=== PATIENT | male | born 1955 | race Hispanic/Latino ===

== ENCOUNTER 2022-02-28 17:58 | Emergency (ER) | payer OTHER ==
[~2022-02-28] VITALS: Ht 170.2 cm; Wt 106.6 kg
[2022-02-28] MEDS ORDERED: ONDANSETRON HCL INJ 2MG/ML 2ML 2 MG/ML VIAL IV STA (18:43)
[2022-02-28] MEDS ORDERED: Morphine 4mg INJECTION 4 MG/ML INJ IV PRN (18:45)
[2022-02-28 19:00] LABS: BASOPHILS % 0.1 % (0.0-1.0); EOSINOPHILS # (AUTO) 0.1 (0.0-0.4); EOSINOPHILS % 0.8 % (0.0-6.0); HEMATOCRIT 34.8 % (38.2-49.6); LYMPHOCYTES # (AUTO) 1.2 (1.0-3.2); LYMPHOCYTES % 12.5 % (18.0-39.1); MEAN CORPUSCULAR HGB CONC 31.6 g/dL (31-35); MEAN CORPUSCULAR VOLUME 104.5 fL (81-99); MONOCYTES % 10.1 % (4.4-11.3); NEUTROPHILS # (AUTO) 7.5 (2.1-6.9); NEUTROPHILS % 76.2 % (38.7-80.0); PLATELET COUNT 169 x10e3/uL (140-360); RED BLOOD COUNT 3.33 x10e6/uL (4.3-5.7); RED CELL DISTRIBUTION WIDTH 13.8 % (11.7-14.4)
[2022-02-28] MEDS ORDERED: IOPAMIDOL 370 MG/ML 100 ML INFUS..BTL INJ ONE (19:07)
[2022-02-28 19:18] LABS: ALBUMIN/GLOBULIN RATIO 1.1 (0.8-2.0); ANION GAP 21.5 mmol/L (8-16); CALCIUM 9.8 mg/dL (8.4-10.2); CREATININE, SERUM 6.8 mg/dL (0.72-1.25); POTASSIUM 4.5 mmol/L (3.5-5.1)
[2022-02-28 20:54] VITALS: BP 159/61
[2022-02-28] MEDS ORDERED: METRONIDAZOLE500 MG PO (20:54)
[2022-02-28] MEDS ORDERED: CIPRO500 MG PO (20:54)
[2022-02-28] MEDS ORDERED: ONDANSETRON ODT4 MG PO (20:55)
== END 2022-02-28 21:05 | disposition home or self-care (01) ==
LOC: ER 18:03
DX: R10.31 Right lower quadrant pain (principal); R11.2 Nausea with vomiting, unspecified; I12.0 Hypertensive chronic kidney disease with stage 5 chronic kidney disease or end stage renal disease; E11.22 Type 2 diabetes mellitus with diabetic chronic kidney disease; E11.65 Type 2 diabetes mellitus with hyperglycemia; N18.6 End stage renal disease; Z99.2 Dependence on renal dialysis; K57.32 Diverticulitis of large intestine without perforation or abscess without bleeding; I25.2 Old myocardial infarction; Z95.5 Presence of coronary angioplasty implant and graft
CPT/HCPCS: 36415; 74177; 80053; 85025; 93005; 99284; J2270; J2405; Q9967

== ENCOUNTER → 2022-05-18 | Day surgery (SDC) | payer OTHER ==
[~2022-05-18] MED LIST: ALLOPURINOL100 MG PO; AMLODIPINE BESYL5 MG PO; ASPIRIN81 MG PO; ATORVASTATIN CA20 MG PO; BUMETANIDE1 MG PO; CALCIUM ACETAT667 M1 PO; CIPRO500 MG PO; CLOPIDOGREL75 MG PO; EPHEDRINE SULFATE INJ 50 MG/ML VIAL ONE; FENTANYL CITRATE/PF 100MCG/2 ML INJ ONE; FLOMAX0.4 MG PO; GLUCAGON FOR INJ 1 MG VIAL ONE; HUMALOG MI100 UNIT/2 SQ; LEVEMIR FL100 UNIT/1 SC; LIDOCAINE HCL 2% LOCAL INJ 5 ML SDV VIAL INJ ONE; METOCLOPRAMIDE HCL 10 MG/2ML VIAL ONE; METOPROLOL ER PO; METRONIDAZOLE500 MG PO; MONTELUKAST SOD10 MG PO; NEPHRO-VITE TABL1 EA PO; ONDANSETRON HCL INJ 2MG/ML 2ML 2 MG/ML VIAL ONE; ONDANSETRON ODT4 MG PO; POVIDONE IODINE 0.05% 0.05 % ML PO ONE; PROPOFOL IV EMULSION 10 MG/ML 20 ML VIAL ONE; PROPOFOL IV EMULSION 50 ML IV ONE; PROTONIX20 MG PO; SODIUM CHLORIDE 0.9% 500ML 500 ML ONE; TRAMADOL HCL100 MG; VASCEPA1 GM PO; VITAMIN D3
[2022-05-18 06:13] LABS: BASOPHILS # (AUTO) 0.1 (0.0-0.1); BASOPHILS % 0.8 % (0.0-1.0); EOSINOPHILS # (AUTO) 0.5 (0.0-0.4); HEMATOCRIT 34.1 % (38.2-49.6); LYMPHOCYTES # (AUTO) 1.3 (1.0-3.2); LYMPHOCYTES % 17.7 % (18.0-39.1); MEAN CORPUSCULAR HEMOGLOBIN 32.7 pg (28-32); MEAN CORPUSCULAR HGB CONC 35.2 g/dL (31-35); MEAN CORPUSCULAR VOLUME 92.9 fL (81-99); MONOCYTES # (AUTO) 0.8 (0.2-0.8); MONOCYTES % 10.8 % (4.4-11.3); NEUTROPHILS # (AUTO) 4.9 (2.1-6.9); NEUTROPHILS % 64.3 % (38.7-80.0); PLATELET COUNT 151 x10e3/uL (140-360); RED BLOOD COUNT 3.67 x10e6/uL (4.3-5.7); RED CELL DISTRIBUTION WIDTH 13.3 % (11.7-14.4)
[2022-05-18 06:25] LABS: INR 0.95; PROTHROMBIN TIME 13.2 seconds (11.9-14.5)
[2022-05-18 06:47] LABS: ANION GAP 24.5 mmol/L (8-16); CALCIUM 8.8 mg/dL (8.4-10.2); CREATININE, SERUM 4.79 mg/dL (0.72-1.25); POTASSIUM 3.5 mmol/L (3.5-5.1)
[2022-05-18 10:36] VITALS: BP 130/48
== END | disposition home or self-care (01) ==
LOC: OR 06:47
PROVIDERS: ATTEND Internal Medicine Gastroenterology
DX: K29.50 Unspecified chronic gastritis without bleeding (principal); D12.0 Benign neoplasm of cecum; D12.2 Benign neoplasm of ascending colon; D12.3 Benign neoplasm of transverse colon; K31.89 Other diseases of stomach and duodenum; K20.90 Esophagitis, unspecified without bleeding; K59.00 Constipation, unspecified; K44.9 Diaphragmatic hernia without obstruction or gangrene; K57.30 Diverticulosis of large intestine without perforation or abscess without bleeding; K64.8 Other hemorrhoids; E11.22 Type 2 diabetes mellitus with diabetic chronic kidney disease; I13.2 Hypertensive heart and chronic kidney disease with heart failure and with stage 5 chronic kidney disease, or end stage renal disease; N18.6 End stage renal disease; I50.32 Chronic diastolic (congestive) heart failure; I25.810 Atherosclerosis of coronary artery bypass graft(s) without angina pectoris; E78.2 Mixed hyperlipidemia; I44.0 Atrioventricular block, first degree; Z79.02 Long term (current) use of antithrombotics/antiplatelets; Z79.82 Long term (current) use of aspirin; Z79.4 Long term (current) use of insulin; Z79.899 Other long term (current) drug therapy; Z99.2 Dependence on renal dialysis; Z68.36 Body mass index [BMI] 36.0-36.9, adult; Z95.5 Presence of coronary angioplasty implant and graft; Z95.1 Presence of aortocoronary bypass graft; Z89.439 Acquired absence of unspecified foot; Z89.029 Acquired absence of unspecified finger(s)
CPT/HCPCS: 36415; 43239; 45378; 45380; 45385; 80048; 82948; 85025; 85610; 85730; 88304; 88305; 88312; 88342; J1610; J2001; J2405; J2765; J7040

== ENCOUNTER 2022-11-26 15:18 | Inpatient (IN) | payer OTHER ==
[~2022-11-26] VITALS: Ht 170.2 cm; Wt 107.5 kg
[~2022-11-26 15:18] MED LIST changes: -EPHEDRINE SULFATE INJ 50 MG/ML VIAL ONE; -FENTANYL CITRATE/PF 100MCG/2 ML INJ ONE; -GLUCAGON FOR INJ 1 MG VIAL ONE; -LIDOCAINE HCL 2% LOCAL INJ 5 ML SDV VIAL INJ ONE; -METOCLOPRAMIDE HCL 10 MG/2ML VIAL ONE; -ONDANSETRON HCL INJ 2MG/ML 2ML 2 MG/ML VIAL ONE; -POVIDONE IODINE 0.05% 0.05 % ML PO ONE; -PROPOFOL IV EMULSION 10 MG/ML 20 ML VIAL ONE; -PROPOFOL IV EMULSION 50 ML IV ONE; -SODIUM CHLORIDE 0.9% 500ML 500 ML ONE
[2022-11-26 16:10] LABS: BASOPHILS % 0.4 % (0.0-1.0); EOSINOPHILS # (AUTO) 0.1 (0.0-0.4); HEMATOCRIT 28.7 % (38.2-49.6); HEMOGLOBIN 9.9 g/dL (14.0-18.0); LYMPHOCYTES % 9.9 % (18.0-39.1); MEAN CORPUSCULAR HEMOGLOBIN 30.7 pg (28-32); MEAN CORPUSCULAR HGB CONC 34.5 g/dL (31-35); MEAN CORPUSCULAR VOLUME 88.9 fL (81-99); MONOCYTES # (AUTO) 1.1 (0.2-0.8); MONOCYTES % 10.5 % (4.4-11.3); PLATELET COUNT 174 x10e3/uL (140-360); RED BLOOD COUNT 3.23 x10e6/uL (4.3-5.7); WHITE BLOOD COUNT 10.29 x10e3/uL (4.8-10.8)
[2022-11-26] MEDS ORDERED: PIPERACILLIN/TAZOBACTAM 3.375 GM VIAL ONE (16:10)
[2022-11-26 16:24] LABS: ANION GAP 18.8 mmol/L (8-16); CALCIUM 9.5 mg/dL (8.4-10.2); CREATININE, SERUM 8.21 mg/dL (0.72-1.25); POTASSIUM 3.8 mmol/L (3.5-5.1)
[2022-11-26] MEDS ORDERED: AMOX TR-K CLV1 EAC2 PO (17:57)
[2022-11-26 22:28] VITALS: BP 132/36; PULSE 71; RESP 20; TEMP 99; O2SAT 100
[2022-11-26 23:00] VITALS: BP 132/56; PULSE 71; RESP 20; TEMP 99; O2SAT 100
[2022-11-27] MEDS ORDERED: ONDANSETRON HCL INJ 2MG/ML 2ML 2 MG/ML VIAL IV PRN
[2022-11-27] MEDS: Morphine 4mg INJECTION 4 MG/ML INJ IV PRN (00:01)
[2022-11-27] MEDS ORDERED: DEXTROSE 50% SYRINGE 50 ML IV PRN (01:15)
[2022-11-27 04:00] VITALS: BP 102/36; PULSE 66; RESP 20; TEMP 98.1; O2SAT 96
[2022-11-27 05:24] LABS: BASOPHILS % 0.5 % (0.0-1.0); EOSINOPHILS # (AUTO) 0.2 (0.0-0.4); EOSINOPHILS % 2.4 % (0.0-6.0); HEMOGLOBIN 8.6 g/dL (14.0-18.0); LYMPHOCYTES # (AUTO) 1.2 (1.0-3.2); LYMPHOCYTES % 16.2 % (18.0-39.1); MEAN CORPUSCULAR HEMOGLOBIN 30.7 pg (28-32); MEAN CORPUSCULAR HGB CONC 34.4 g/dL (31-35); MEAN CORPUSCULAR VOLUME 89.3 fL (81-99); MONOCYTES # (AUTO) 0.8 (0.2-0.8); MONOCYTES % 10.8 % (4.4-11.3); NEUTROPHILS # (AUTO) 5.2 (2.1-6.9); NEUTROPHILS % 69.8 % (38.7-80.0); PLATELET COUNT 152 x10e3/uL (140-360); WHITE BLOOD COUNT 7.49 x10e3/uL (4.8-10.8)
[2022-11-27 05:43] LABS: ANION GAP 17.3 mmol/L (8-16); CALCIUM 8.4 mg/dL (8.4-10.2); CREATININE, SERUM 8.7 mg/dL (0.72-1.25); POTASSIUM 4.3 mmol/L (3.5-5.1)
[2022-11-27] MEDS ORDERED: SODIUM CHLORIDE 0.9% 250ML 250 ML ONE (06:50)
[2022-11-27 07:55] VITALS: BP 107/46; PULSE 68; RESP 18; TEMP 98.1; O2SAT 100
[2022-11-27] MEDS: TAMSULOSIN HCL 0.4 MG CAP PO SCH (08:44)
[2022-11-27] MEDS: AMLODIPINE BESYLATE 5 MG TAB PO SCH (08:44)
[2022-11-27] MEDS: ALLOPURINOL 100 MG TAB PO SCH (08:45)
[2022-11-27] MEDS: INSULIN REGULAR, HUMAN 100 UNIT/1 ML SQ SCH ×4 (08:47→22:35)
[2022-11-27] MEDS ORDERED: NOVOLOG100 UNIT/1 SC (08:51)
[2022-11-27 08:52] VITALS: BP 107/46; PULSE 68; RESP 18; TEMP 98.1; O2SAT 100
[2022-11-27] MEDS ORDERED: SODIUM CHLORIDE 0.9% 1000ML 1,000 ML ONE (10:51)
[2022-11-27 11:51] VITALS: BP 129/59; PULSE 68; RESP 18; TEMP 98.4; O2SAT 99
[2022-11-27] MEDS ORDERED: INSULIN REGULAR, HUMAN 100 UNIT/1 ML SQ ONE (12:00)
[2022-11-27 15:53] VITALS: BP 128/59; PULSE 73; RESP 17; TEMP 97.7; O2SAT 100
[2022-11-27] MEDS: COLLAGENASE 5 GM TUBE TP SCH (16:28)
[2022-11-27 17:53] LABS: CLARITY,URINE SL CLOUDY (CLEAR); COLOR,URINE YELLOW (YELLOW); KETONES,URINE NEGATIVE (NEGATIVE); LEUKOCYTE ESTERASE ,URINE NEGATIVE (NEGATIVE); NITRITE,URINE NEGATIVE (NEGATIVE); PROTEIN,URINE DIPSTICK 2+ (NEGATIVE); URINE UROBILINOGEN 0.2 mg/dL (0.2 - 1)
[2022-11-27 18:03] LABS: BACTERIA,URINE MODERATE /HPF; EPITHELIAL CELLS,URINE MODERATE /LPF; RBC,URINE 0-5 /HPF (0-5); TRANSITIONAL EPI CELLS,URINE FEW
[2022-11-27] MEDS ORDERED: LINZESS290 MCG PO (19:23)
[2022-11-27] MEDS ORDERED: TRAMADOL HCL 50 MG TAB PO PRN (19:45)
[2022-11-27 20:00] VITALS: BP 128/65; PULSE 78; RESP 18; TEMP 98.1; O2SAT 100
[2022-11-27] MEDS: ATORVASTATIN 20 MG TAB PO SCH (21:48)
[2022-11-27] MEDS: HYDROCODONE/APAP 7.5MG-325MG 1 EA TAB PO PRN (21:48)
[2022-11-27] MEDS ORDERED: PIPERACILLIN/TAZOBACTAM SOD 2.25 GM VIAL ONE (21:59)
[2022-11-28] VITALS (9 sets, daily range): BP systolic 120–149; BP diastolic 47–70; PULSE 72–78; RESP 18–19; TEMP 98–98.7; O2SAT 96–100
[2022-11-28 05:29] LABS: BASOPHILS % 0.5 % (0.0-1.0); EOSINOPHILS # (AUTO) 0.3 (0.0-0.4); EOSINOPHILS % 3.9 % (0.0-6.0); HEMOGLOBIN 9.1 g/dL (14.0-18.0); LYMPHOCYTES # (AUTO) 0.9 (1.0-3.2); LYMPHOCYTES % 14.2 % (18.0-39.1); MEAN CORPUSCULAR HEMOGLOBIN 30.5 pg (28-32); MEAN CORPUSCULAR HGB CONC 33.7 g/dL (31-35); MEAN CORPUSCULAR VOLUME 90.6 fL (81-99); MONOCYTES # (AUTO) 0.8 (0.2-0.8); MONOCYTES % 12.3 % (4.4-11.3); NEUTROPHILS # (AUTO) 4.4 (2.1-6.9); NEUTROPHILS % 68.9 % (38.7-80.0); PLATELET COUNT 174 x10e3/uL (140-360); RED BLOOD COUNT 2.98 x10e6/uL (4.3-5.7); RED CELL DISTRIBUTION WIDTH 12.9 % (11.7-14.4); WHITE BLOOD COUNT 6.33 x10e3/uL (4.8-10.8)
[2022-11-28 06:26] LABS: ANION GAP 14.1 mmol/L (8-16); CALCIUM 8.5 mg/dL (8.4-10.2); POTASSIUM 4.1 mmol/L (3.5-5.1)
[2022-11-28 06:44] LABS: ALBUMIN 2.9 g/dL (3.5-5.0)
[2022-11-28 06:47] LABS: ALBUMIN/GLOBULIN RATIO 0.8 (0.8-2.0)
[2022-11-28] MEDS: COLLAGENASE 5 GM TUBE TP SCH (09:00)
[2022-11-28] MEDS: PANTOPRAZOLE SOD 40 MG TABEC PO SCH (09:01)
[2022-11-28] MEDS: TAMSULOSIN HCL 0.4 MG CAP PO SCH (09:01)
[2022-11-28] MEDS: CLOPIDOGREL BISULFATE 75 MG TAB PO SCH (09:01)
[2022-11-28] MEDS: ALLOPURINOL 100 MG TAB PO SCH (09:01)
[2022-11-28] MEDS: AMLODIPINE BESYLATE 5 MG TAB PO SCH (09:01)
[2022-11-28] MEDS: MONTELUKAST SODIUM 10 MG TAB PO SCH (09:01)
[2022-11-28] MEDS: ICOSAPENT ETHYL 1 GM CAPSULE PO SCH ×2 (09:02→17:03)
[2022-11-28] MEDS: ASPIRIN 81 MG CHEW TAB PO SCH (09:02)
[2022-11-28] MEDS: INSULIN GLARGINE 100 UNITS/ML VIAL SC SCH ×2 (09:11→21:41)
[2022-11-28] MEDS: INSULIN REGULAR, HUMAN 100 UNIT/1 ML SQ SCH ×4 (09:19→21:40)
[2022-11-28] MEDS: INSULIN LISPRO 100 UNIT/1 ML 3ML VIAL SQ SCH ×3 (09:20→17:07)
[2022-11-28] MEDS ORDERED: ONDANSETRON HCL 4 MG ORAL DISINTEGRATING TAB PO PRN (11:45)
[2022-11-28] MEDS: MECLIZINE HCL 12.5 MG TAB PO SCH ×3 (13:44→21:30)
[2022-11-28] MEDS: HYDROCODONE/APAP 7.5MG-325MG 1 EA TAB PO PRN (18:31)
[2022-11-28] MEDS: ATORVASTATIN 20 MG TAB PO SCH (21:29)
[2022-11-29] VITALS (7 sets, daily range): BP systolic 105–177; BP diastolic 40–80; PULSE 68–79; RESP 17–20; TEMP 97.9–98.8; O2SAT 98–100
[2022-11-29] MEDS: MECLIZINE HCL 12.5 MG TAB PO SCH ×3 (05:19→21:45)
[2022-11-29 06:21] LABS: BASOPHILS # (AUTO) 0.1 (0.0-0.1); EOSINOPHILS # (AUTO) 0.4 (0.0-0.4); HEMATOCRIT 25.7 % (38.2-49.6); HEMOGLOBIN 8.8 g/dL (14.0-18.0); LYMPHOCYTES % 17.4 % (18.0-39.1); MEAN CORPUSCULAR HEMOGLOBIN 30.9 pg (28-32); MEAN CORPUSCULAR HGB CONC 34.2 g/dL (31-35); MEAN CORPUSCULAR VOLUME 90.2 fL (81-99); MONOCYTES # (AUTO) 0.7 (0.2-0.8); MONOCYTES % 11.2 % (4.4-11.3); NEUTROPHILS # (AUTO) 3.8 (2.1-6.9); NEUTROPHILS % 64.1 % (38.7-80.0); PLATELET COUNT 186 x10e3/uL (140-360); RED BLOOD COUNT 2.85 x10e6/uL (4.3-5.7); RED CELL DISTRIBUTION WIDTH 12.8 % (11.7-14.4); WHITE BLOOD COUNT 5.98 x10e3/uL (4.8-10.8)
[2022-11-29 06:46] LABS: CALCIUM 8.4 mg/dL (8.4-10.2); CREATININE, SERUM 7.1 mg/dL (0.72-1.25)
[2022-11-29] MEDS ORDERED: SODIUM CHLORIDE 0.9% 1000ML 2,000 ML ONE (08:04)
[2022-11-29] MEDS: INSULIN REGULAR, HUMAN 100 UNIT/1 ML SQ SCH ×4 (08:10→21:57)
[2022-11-29] MEDS: INSULIN LISPRO 100 UNIT/1 ML 3ML VIAL SQ SCH ×3 (08:10→17:31)
[2022-11-29] MEDS ORDERED: HEPARIN SOD (PORCINE) 1000 UNIT/ML SDV ONE (08:21)
[2022-11-29] MEDS ORDERED: HEPARIN SOD (PORCINE) 1000 UNIT/ML SDV IV PRN (09:00)
[2022-11-29] MEDS: AMLODIPINE BESYLATE 5 MG TAB PO SCH (09:00)
[2022-11-29] MEDS ORDERED: EPOETIN ALFA-EPBX 10,000 UNIT/ML VIAL SC ONE (11:00)
[2022-11-29] MEDS: MONTELUKAST SODIUM 10 MG TAB PO SCH (11:13)
[2022-11-29] MEDS: ICOSAPENT ETHYL 1 GM CAPSULE PO SCH ×2 (11:13→17:31)
[2022-11-29] MEDS: ASPIRIN 81 MG CHEW TAB PO SCH (11:13)
[2022-11-29] MEDS: CLOPIDOGREL BISULFATE 75 MG TAB PO SCH (11:14)
[2022-11-29] MEDS: TAMSULOSIN HCL 0.4 MG CAP PO SCH (11:14)
[2022-11-29] MEDS: ALLOPURINOL 100 MG TAB PO SCH (11:14)
[2022-11-29] MEDS: PANTOPRAZOLE SOD 40 MG TABEC PO SCH (11:15)
[2022-11-29] MEDS: INSULIN GLARGINE 100 UNITS/ML VIAL SC SCH ×2 (11:16→21:58)
[2022-11-29] MEDS: COLLAGENASE 5 GM TUBE TP SCH (11:17)
[2022-11-29] MEDS: HYDROCODONE/APAP 7.5MG-325MG 1 EA TAB PO PRN ×2 (14:48→23:41)
[2022-11-29] MEDS: ATORVASTATIN 20 MG TAB PO SCH (21:45)
[2022-11-30] VITALS (8 sets, daily range): BP systolic 117–177; BP diastolic 55–77; PULSE 65–70; RESP 18–20; TEMP 97.7–98.6; O2SAT 98–100
[2022-11-30] MEDS: AMLODIPINE BESYLATE 5 MG TAB PO SCH ×2 (06:22→11:42)
[2022-11-30] MEDS: MECLIZINE HCL 12.5 MG TAB PO SCH ×3 (06:22→23:10)
[2022-11-30 06:26] LABS: HEMATOCRIT 27.3 % (38.2-49.6)
[2022-11-30 06:48] LABS: PHOSPHORUS 4.2 MG/DL (2.3-4.7)
[2022-11-30 07:51] LABS: FERRITIN 1982.6 ng/mL (21.81-274.66)
[2022-11-30] MEDS: COLLAGENASE 5 GM TUBE TP SCH (09:00)
[2022-11-30] MEDS: INSULIN REGULAR, HUMAN 100 UNIT/1 ML SQ SCH ×4 (11:30→21:00)
[2022-11-30] MEDS: MONTELUKAST SODIUM 10 MG TAB PO SCH (11:39)
[2022-11-30] MEDS: ALLOPURINOL 100 MG TAB PO SCH (11:39)
[2022-11-30] MEDS: TAMSULOSIN HCL 0.4 MG CAP PO SCH (11:40)
[2022-11-30] MEDS: PANTOPRAZOLE SOD 40 MG TABEC PO SCH (11:40)
[2022-11-30] MEDS: ICOSAPENT ETHYL 1 GM CAPSULE PO SCH ×2 (11:40→18:07)
[2022-11-30] MEDS: ASPIRIN 81 MG CHEW TAB PO SCH (11:40)
[2022-11-30] MEDS: INSULIN LISPRO 100 UNIT/1 ML 3ML VIAL SQ SCH ×3 (11:44→18:08)
[2022-11-30] MEDS: INSULIN GLARGINE 100 UNITS/ML VIAL SC SCH ×3 (11:46→21:28)
[2022-11-30] MEDS: CLOPIDOGREL BISULFATE 75 MG TAB PO SCH (11:47)
[2022-11-30] MEDS: HYDROCODONE/APAP 7.5MG-325MG 1 EA TAB PO PRN (18:13)
[2022-11-30] MEDS: ATORVASTATIN 20 MG TAB PO SCH (20:34)
[2022-11-30] MEDS: Morphine 4mg INJECTION 4 MG/ML INJ IV PRN (20:35)
[2022-12-01] VITALS (7 sets, daily range): BP systolic 128–170; BP diastolic 51–65; PULSE 68–72; RESP 18–20; TEMP 97.4–98.1; O2SAT 98–100
[2022-12-01] MEDS: MECLIZINE HCL 12.5 MG TAB PO SCH ×3 (05:48→21:06)
[2022-12-01] MEDS: ICOSAPENT ETHYL 1 GM CAPSULE PO SCH ×2 (08:42→16:05)
[2022-12-01] MEDS: ASPIRIN 81 MG CHEW TAB PO SCH (08:42)
[2022-12-01] MEDS: TAMSULOSIN HCL 0.4 MG CAP PO SCH (08:42)
[2022-12-01] MEDS: ALLOPURINOL 100 MG TAB PO SCH (08:42)
[2022-12-01] MEDS: CLOPIDOGREL BISULFATE 75 MG TAB PO SCH (08:42)
[2022-12-01] MEDS: MONTELUKAST SODIUM 10 MG TAB PO SCH (08:42)
[2022-12-01] MEDS: PANTOPRAZOLE SOD 40 MG TABEC PO SCH (08:42)
[2022-12-01] MEDS: COLLAGENASE 5 GM TUBE TP SCH (08:43)
[2022-12-01] MEDS: INSULIN REGULAR, HUMAN 100 UNIT/1 ML SQ SCH ×4 (08:51→21:00)
[2022-12-01] MEDS: INSULIN GLARGINE 100 UNITS/ML VIAL SQ SCH ×2 (08:52→16:30)
[2022-12-01] MEDS ORDERED: SODIUM CHLORIDE 0.9% 1000ML 2,000 ML IV PRN (09:15)
[2022-12-01 09:29] LABS: BASOPHILS # (AUTO) 0.1 (0.0-0.1); BASOPHILS % 1.3 % (0.0-1.0); EOSINOPHILS # (AUTO) 0.3 (0.0-0.4); EOSINOPHILS % 6.3 % (0.0-6.0); HEMATOCRIT 27.5 % (38.2-49.6); HEMOGLOBIN 9.3 g/dL (14.0-18.0); LYMPHOCYTES # (AUTO) 0.8 (1.0-3.2); LYMPHOCYTES % 15.2 % (18.0-39.1); MEAN CORPUSCULAR HEMOGLOBIN 30.3 pg (28-32); MEAN CORPUSCULAR HGB CONC 33.8 g/dL (31-35); MEAN CORPUSCULAR VOLUME 89.6 fL (81-99); MONOCYTES # (AUTO) 0.5 (0.2-0.8); MONOCYTES % 9.2 % (4.4-11.3); NEUTROPHILS # (AUTO) 3.5 (2.1-6.9); NEUTROPHILS % 67.8 % (38.7-80.0); PLATELET COUNT 224 x10e3/uL (140-360); RED BLOOD COUNT 3.07 x10e6/uL (4.3-5.7)
[2022-12-01 10:15] LABS: ANION GAP 18.3 mmol/L (8-16); CALCIUM 8.4 mg/dL (8.4-10.2); CREATININE, SERUM 5.6 mg/dL (0.72-1.25); POTASSIUM 4.3 mmol/L (3.5-5.1)
[2022-12-01] MEDS ORDERED: EPOETIN ALFA-EPBX 10,000 UNIT/ML VIAL SC ONE (12:00)
[2022-12-01] MEDS: ATORVASTATIN 20 MG TAB PO SCH (21:00)
[2022-12-01] MEDS: HYDROCODONE/APAP 7.5MG-325MG 1 EA TAB PO PRN (21:05)
[2022-12-02] VITALS (8 sets, daily range): BP systolic 132–169; BP diastolic 45–77; PULSE 67–74; RESP 17–20; TEMP 97.6–98.4; O2SAT 100
[2022-12-02] MEDS: MECLIZINE HCL 12.5 MG TAB PO SCH ×3 (05:21→21:31)
[2022-12-02] MEDS: ALLOPURINOL 100 MG TAB PO SCH (08:22)
[2022-12-02] MEDS: MONTELUKAST SODIUM 10 MG TAB PO SCH (08:23)
[2022-12-02] MEDS: TAMSULOSIN HCL 0.4 MG CAP PO SCH (08:23)
[2022-12-02] MEDS: ICOSAPENT ETHYL 1 GM CAPSULE PO SCH ×2 (08:23→15:59)
[2022-12-02] MEDS: AMLODIPINE BESYLATE 5 MG TAB PO SCH (08:23)
[2022-12-02] MEDS: PANTOPRAZOLE SOD 40 MG TABEC PO SCH (08:23)
[2022-12-02] MEDS: CLOPIDOGREL BISULFATE 75 MG TAB PO SCH (08:23)
[2022-12-02] MEDS: ASPIRIN 81 MG CHEW TAB PO SCH (08:23)
[2022-12-02] MEDS: INSULIN GLARGINE 100 UNITS/ML VIAL SQ SCH ×2 (08:25→16:42)
[2022-12-02] MEDS: INSULIN REGULAR, HUMAN 100 UNIT/1 ML SQ SCH ×4 (08:26→21:38)
[2022-12-02] MEDS: COLLAGENASE 5 GM TUBE TP SCH (08:26)
[2022-12-02] MEDS: HYDROCODONE/APAP 7.5MG-325MG 1 EA TAB PO PRN ×2 (15:59→21:31)
[2022-12-02] MEDS: ATORVASTATIN 20 MG TAB PO SCH (21:39)
[2022-12-03] VITALS (8 sets, daily range): BP systolic 137–162; BP diastolic 36–69; PULSE 61–69; RESP 16–19; TEMP 97.7–98.3; O2SAT 99–100
[2022-12-03] MEDS: MECLIZINE HCL 12.5 MG TAB PO SCH ×3 (06:11→21:36)
[2022-12-03] MEDS: MONTELUKAST SODIUM 10 MG TAB PO SCH (08:31)
[2022-12-03] MEDS: ALLOPURINOL 100 MG TAB PO SCH (08:31)
[2022-12-03] MEDS: ICOSAPENT ETHYL 1 GM CAPSULE PO SCH ×2 (08:31→18:36)
[2022-12-03] MEDS: PANTOPRAZOLE SOD 40 MG TABEC PO SCH (08:31)
[2022-12-03] MEDS: AMLODIPINE BESYLATE 5 MG TAB PO SCH (08:31)
[2022-12-03] MEDS: ASPIRIN 81 MG CHEW TAB PO SCH (08:31)
[2022-12-03] MEDS: TAMSULOSIN HCL 0.4 MG CAP PO SCH (08:31)
[2022-12-03] MEDS: CLOPIDOGREL BISULFATE 75 MG TAB PO SCH (08:32)
[2022-12-03] MEDS: INSULIN GLARGINE 100 UNITS/ML VIAL SQ SCH ×2 (08:34→16:46)
[2022-12-03] MEDS: INSULIN REGULAR, HUMAN 100 UNIT/1 ML SQ SCH ×4 (08:35→21:44)
[2022-12-03] MEDS: COLLAGENASE 5 GM TUBE TP SCH (08:38)
[2022-12-03] MEDS: HYDROCODONE/APAP 7.5MG-325MG 1 EA TAB PO PRN ×2 (14:50→21:47)
[2022-12-03] MEDS: ATORVASTATIN 20 MG TAB PO SCH (21:36)
[2022-12-04] VITALS (9 sets, daily range): BP systolic 119–195; BP diastolic 40–76; PULSE 63–77; RESP 18–20; TEMP 97–98.4; O2SAT 100
[2022-12-04] MEDS: MECLIZINE HCL 12.5 MG TAB PO SCH ×3 (05:59→23:16)
[2022-12-04] MEDS: INSULIN REGULAR, HUMAN 100 UNIT/1 ML SQ SCH ×4 (07:30→21:00)
[2022-12-04] MEDS: PANTOPRAZOLE SOD 40 MG TABEC PO SCH (08:46)
[2022-12-04] MEDS: ICOSAPENT ETHYL 1 GM CAPSULE PO SCH ×2 (08:46→17:02)
[2022-12-04] MEDS: ALLOPURINOL 100 MG TAB PO SCH (08:46)
[2022-12-04] MEDS: MONTELUKAST SODIUM 10 MG TAB PO SCH (08:46)
[2022-12-04] MEDS: CLOPIDOGREL BISULFATE 75 MG TAB PO SCH (08:46)
[2022-12-04] MEDS: TAMSULOSIN HCL 0.4 MG CAP PO SCH (08:46)
[2022-12-04] MEDS: ASPIRIN 81 MG CHEW TAB PO SCH (08:46)
[2022-12-04] MEDS: INSULIN GLARGINE 100 UNITS/ML VIAL SQ SCH ×2 (08:49→17:01)
[2022-12-04] MEDS: AMLODIPINE BESYLATE 5 MG TAB PO SCH (08:51)
[2022-12-04] MEDS: COLLAGENASE 5 GM TUBE TP SCH (09:13)
[2022-12-04] MEDS ORDERED: EPOETIN ALFA-EPBX 10,000 UNIT/ML VIAL SC ONE (12:30)
[2022-12-04] MEDS ORDERED: COLLAGENASE (14:40)
[2022-12-04] MEDS ORDERED: SANTYL (14:41)
[2022-12-04] MEDS ORDERED: HYDROCODONE/APAP 7.5MG-325MG 1 EA TAB PO PRN (23:00)
[2022-12-04] MEDS ORDERED: AMLODIPINE BESYLATE 5 MG TAB PO ONE (23:00)
[2022-12-04] MEDS ORDERED: TRAMADOL HCL 50 MG TAB PO PRN (23:00)
[2022-12-04] MEDS: ATORVASTATIN 20 MG TAB PO SCH (23:16)
[2022-12-05] VITALS: BP 147/43; PULSE 80; RESP 18; TEMP 97.5; O2SAT 94
[2022-12-05 04:33] VITALS: BP 128/41; PULSE 70; RESP 16; TEMP 97.7; O2SAT 100
[2022-12-05 08:45] VITALS: BP 150/63; PULSE 65; RESP 19; TEMP 97.8; O2SAT 97
[2022-12-05] MEDS: ICOSAPENT ETHYL 1 GM CAPSULE PO SCH (10:37)
[2022-12-05] MEDS: AMLODIPINE BESYLATE 5 MG TAB PO SCH (10:37)
[2022-12-05] MEDS: MONTELUKAST SODIUM 10 MG TAB PO SCH (10:37)
[2022-12-05] MEDS: TAMSULOSIN HCL 0.4 MG CAP PO SCH (10:38)
[2022-12-05] MEDS: ASPIRIN 81 MG CHEW TAB PO SCH (10:38)
[2022-12-05] MEDS: ALLOPURINOL 100 MG TAB PO SCH (10:38)
[2022-12-05] MEDS: CLOPIDOGREL BISULFATE 75 MG TAB PO SCH (10:38)
[2022-12-05] MEDS: PANTOPRAZOLE SOD 40 MG TABEC PO SCH (10:38)
[2022-12-05] MEDS: INSULIN GLARGINE 100 UNITS/ML VIAL SQ SCH (10:44)
[2022-12-05] MEDS: INSULIN REGULAR, HUMAN 100 UNIT/1 ML SQ SCH (10:45)
== END 2022-12-05 11:59 | disposition home or self-care (01) | DRG 638 ==
LOC: ER 15:38 → ERHOLD 18:19 → MED/SURG2 21:47
PROVIDERS: ADMIT Internal Medicine; ATTEND Internal Medicine
PROC: 3E03329 Introduction of Other Anti-infective into Peripheral Vein, Percutaneous Approach (ICD-10-PCS; principal; 2022-11-26)
PROC: 5A1D70Z Performance of Urinary Filtration, Intermittent, Less than 6 Hours Per Day (ICD-10-PCS; 2022-11-27)
DX: E11.621 Type 2 diabetes mellitus with foot ulcer (principal); I12.0 Hypertensive chronic kidney disease with stage 5 chronic kidney disease or end stage renal disease; M86.8X7 Other osteomyelitis, ankle and foot; L97.422 Non-pressure chronic ulcer of left heel and midfoot with fat layer exposed; L97.419 Non-pressure chronic ulcer of right heel and midfoot with unspecified severity; L03.116 Cellulitis of left lower limb; B96.20 Unspecified Escherichia coli [E. coli] as the cause of diseases classified elsewhere; B95.61 Methicillin susceptible Staphylococcus aureus infection as the cause of diseases classified elsewhere; E11.42 Type 2 diabetes mellitus with diabetic polyneuropathy; E11.22 Type 2 diabetes mellitus with diabetic chronic kidney disease; N18.6 End stage renal disease; Z99.2 Dependence on renal dialysis; E66.01 Morbid (severe) obesity due to excess calories; Z68.37 Body mass index [BMI] 37.0-37.9, adult; W19.XXXA Unspecified fall, initial encounter; E78.5 Hyperlipidemia, unspecified; I25.2 Old myocardial infarction; I44.0 Atrioventricular block, first degree; R29.6 Repeated falls; S09.90XA Unspecified injury of head, initial encounter; E11.21 Type 2 diabetes mellitus with diabetic nephropathy; N25.81 Secondary hyperparathyroidism of renal origin; I25.10 Atherosclerotic heart disease of native coronary artery without angina pectoris; R27.0 Ataxia, unspecified; E11.51 Type 2 diabetes mellitus with diabetic peripheral angiopathy without gangrene; D63.1 Anemia in chronic kidney disease; E11.69 Type 2 diabetes mellitus with other specified complication; Z11.52 Encounter for screening for COVID-19; Z89.422 Acquired absence of other left toe(s); Z89.421 Acquired absence of other right toe(s); Z95.1 Presence of aortocoronary bypass graft; Z90.49 Acquired absence of other specified parts of digestive tract; Z95.5 Presence of coronary angioplasty implant and graft; Z79.82 Long term (current) use of aspirin; Z79.4 Long term (current) use of insulin
CPT/HCPCS: 36415; 70450; 70551; 71046; 72125; 80048; 80053; 81001; 82550; 82607; 82728; 82948; 83036; 83540; 84100; 84443; 84466; 84484; 85014; 85018; 85025; 86704; 86706; 87040; 87071; 87086; 87186; 87205; 87340; 93005; 93925; 93970; 99252; 99284; J1644; J1815; J2270; J2405; J2543; J7030; J7050; U0002

== ENCOUNTER 2023-11-03 11:39 | Inpatient (IN) | payer OTHER ==
[~2023-11-03] VITALS: Ht 172.7 cm; Wt 108.9 kg
[~2023-11-03 11:39] MED LIST changes: +ABILIFY2 MG PO; +ACETAMINOPHEN-1 EAC4 PO; +AMOX TR-K CLV1 EAC2 PO; +AMOX/CLAV PO; +BELBUCA75 MCG PO; +COLLAGENASE; +FIASP 100100 UNIT/2 SC; +LEXAPRO10 MG PO; +LINZESS290 MCG PO; +LYRICA25 MG PO; +NOVOLOG100 UNIT/1 SC; +ONDANSETRON ODT8 MG PO; +SANTYL
[2023-11-03] MEDS ORDERED: Vancomycin IV 1.25 GM in SODIUM CHLORIDE 0.9% 250ML 250 ML IV ONE (12:15)
[2023-11-03 12:18] LABS: BASOPHILS # (AUTO) 0.1 (0.0-0.1); BASOPHILS % 0.6 % (0.0-1.0); EOSINOPHILS # (AUTO) 0.1 (0.0-0.4); EOSINOPHILS % 1.5 % (0.0-6.0); HEMATOCRIT 35.3 % (38.2-49.6); HEMOGLOBIN 11.5 g/dL (14.0-18.0); LYMPHOCYTES # (AUTO) 0.7 (1.0-3.2); LYMPHOCYTES % 8.1 % (18.0-39.1); MEAN CORPUSCULAR HEMOGLOBIN 30.7 pg (28-32); MEAN CORPUSCULAR HGB CONC 32.6 g/dL (31-35); MEAN CORPUSCULAR VOLUME 94.1 fL (81-99); MONOCYTES # (AUTO) 0.6 (0.2-0.8); MONOCYTES % 7.2 % (4.4-11.3); NEUTROPHILS # (AUTO) 7.2 (2.1-6.9); PLATELET COUNT 149 x10e3/uL (140-360); RED BLOOD COUNT 3.75 x10e6/uL (4.3-5.7); RED CELL DISTRIBUTION WIDTH 15.2 % (11.7-14.4); WHITE BLOOD COUNT 8.73 x10e3/uL (4.8-10.8)
[2023-11-03 12:23] LABS: INR 1.03
[2023-11-03 12:24] LABS: PARTIAL THROMBOPLASTIN TIME 37.5 seconds (23.8-35.5)
[2023-11-03 12:31] LABS: COVID 19 ANTIGEN NOT DETECTED (NEGATIVE)
[2023-11-03 12:34] LABS: ALANINE AMINOTRANSFERASE 10 IU/L (0-55); ALBUMIN 3.8 g/dL (3.5-5.0); ALKALINE PHOSPHATASE 64 IU/L (40-150); ANION GAP 19.4 mmol/L (8-16); BILIRUBIN,TOTAL 0.6 mg/dL (0.2-1.2); BLOOD UREA NITROGEN 47 mg/dL (7-26); BUN/CREATININE RATIO 7 (6-25); CALCIUM 9.6 mg/dL (8.4-10.2); CARBON DIOXIDE 26 mmol/L (22-29); CHLORIDE 92 mmol/L (98-107); CREATINE KINASE 46 IU/L (30-200); EST GLOMERULAR FILTRATION RATE 8 ML/MIN (>=60); GLUCOSE 209 mg/dL (74-118); MAGNESIUM 1.9 MG/DL (1.3-2.1); POTASSIUM 4.4 mmol/L (3.5-5.1); SODIUM 133 mmol/L (136-145); TOTAL PROTEIN 7.5 g/dL (6.5-8.1)
[2023-11-03 12:39] LABS: TROPONIN I 0.038 ng/mL (0-0.300)
[2023-11-03] MEDS: Morphine 4mg INJECTION 4 MG/ML INJ IV STA (13:05)
[2023-11-03] MEDS: Vancomycin IV 1 GM in SODIUM CHLORIDE 0.9% 250ML 250 ML IV ONE (13:05)
[2023-11-03] MEDS: ONDANSETRON HCL INJ 2MG/ML 2ML 2 MG/ML VIAL IV STA (13:05)
[2023-11-03] MEDS: ACETAMINOPHEN 325 MG TAB PO ONE (13:25)
[2023-11-03 15:42] VITALS: TEMP 99.1
[2023-11-03] MEDS: ONDANSETRON HCL INJ 2MG/ML 2ML 2 MG/ML VIAL IV PRN (19:33)
[2023-11-03] MEDS: Morphine 2mg Syringe 2 MG/ML SYR IV PRN (19:33)
[2023-11-03 20:45] VITALS: PULSE 67; RESP 16
[2023-11-03 21:05] VITALS: BP 137/104; PULSE 63; RESP 18; TEMP 98.6; O2SAT 94
[2023-11-03 21:13] LABS: TROPONIN I 0.029 ng/mL (0-0.300)
[2023-11-03 21:30] VITALS: BP_SYST 125; BP_SYST 137; BP_DIAS 104; BP_DIAS 80; PULSE 102; PULSE 63; RESP 18; RESP 20; TEMP 98.6; O2SAT 100; O2SAT 94
[2023-11-03 22:00] VITALS: BP 137/104; PULSE 63; RESP 18; TEMP 98.6; O2SAT 94
[2023-11-03] MEDS ORDERED: ONDANSETRON HCL 4 MG ORAL DISINTEGRATING TAB PO PRN (22:30)
[2023-11-03] MEDS: PREGABALIN 25 MG CAP PO SCH (23:38)
[2023-11-03] MEDS: ATORVASTATIN 20 MG TAB PO SCH (23:38)
[2023-11-03] MEDS: PANTOPRAZOLE SOD 40 MG TABEC PO SCH (23:38)
[2023-11-03] MEDS: ESCITALOPRAM OXALATE 10 MG TAB PO SCH (23:38)
[2023-11-03] MEDS: INSULIN GLARGINE 100 UNITS/ML VIAL SQ SCH (23:48)
[2023-11-03] MEDS: INSULIN LISPRO 100 UNIT/1 ML 3ML VIAL SQ SCH (23:48)
[2023-11-04] VITALS (8 sets, daily range): BP systolic 120–156; BP diastolic 48–90; PULSE 65–72; RESP 17–20; TEMP 97.4–98.6; O2SAT 94–100
[2023-11-04 05:46] LABS: BASOPHILS % 0.7 % (0.0-1.0); EOSINOPHILS # (AUTO) 0.2 (0.0-0.4); EOSINOPHILS % 3.6 % (0.0-6.0); HEMATOCRIT 33.6 % (38.2-49.6); HEMOGLOBIN 10.7 g/dL (14.0-18.0); LYMPHOCYTES # (AUTO) 0.7 (1.0-3.2); LYMPHOCYTES % 10.8 % (18.0-39.1); MEAN CORPUSCULAR HEMOGLOBIN 30.5 pg (28-32); MEAN CORPUSCULAR HGB CONC 31.8 g/dL (31-35); MEAN CORPUSCULAR VOLUME 95.7 fL (81-99); MONOCYTES # (AUTO) 0.8 (0.2-0.8); MONOCYTES % 12.8 % (4.4-11.3); NEUTROPHILS # (AUTO) 4.3 (2.1-6.9); NEUTROPHILS % 71.3 % (38.7-80.0); PLATELET COUNT 115 x10e3/uL (140-360); RED BLOOD COUNT 3.51 x10e6/uL (4.3-5.7); RED CELL DISTRIBUTION WIDTH 15.1 % (11.7-14.4); WHITE BLOOD COUNT 6.09 x10e3/uL (4.8-10.8)
[2023-11-04 06:12] LABS: TROPONIN I 0.027 ng/mL (0-0.300)
[2023-11-04 06:41] LABS: ALBUMIN 3.2 g/dL (3.5-5.0); ALBUMIN/GLOBULIN RATIO 0.9 (0.8-2.0); ANION GAP 18.7 mmol/L (8-16); CREATININE, SERUM 8.34 mg/dL (0.72-1.25); POTASSIUM 4.7 mmol/L (3.5-5.1); TOTAL PROTEIN 6.9 g/dL (6.5-8.1)
[2023-11-04] MEDS: AMLODIPINE BESYLATE 5 MG TAB PO SCH (08:53)
[2023-11-04] MEDS: CALCIUM ACETATE 667 MG GELCAP PO SCH (08:53)
[2023-11-04] MEDS: CLOPIDOGREL BISULFATE 75 MG TAB PO SCH (09:13)
[2023-11-04] MEDS: ICOSAPENT ETHYL 1 GM CAPSULE PO SCH (09:54)
[2023-11-04] MEDS: ARIPIPRAZOLE 2 MG TABLET PO SCH (09:54)
[2023-11-04] MEDS ORDERED: Vancomycin IV 1 GM in SODIUM CHLORIDE 0.9% 250ML 250 ML IV SCH (10:00)
[2023-11-04] MEDS: METOPROLOL SUCCINATE 25 MG TAB XL PO SCH (18:02)
[2023-11-04] MEDS: ALLOPURINOL 100 MG TAB PO SCH (21:48)
[2023-11-05] VITALS (7 sets, daily range): BP systolic 131–151; BP diastolic 51–68; PULSE 60–69; RESP 18–20; TEMP 97.5–98.6; O2SAT 95–100
[2023-11-05 07:44] LABS: BASOPHILS # (AUTO) 0.1 (0.0-0.1); BASOPHILS % 0.8 % (0.0-1.0); EOSINOPHILS # (AUTO) 0.4 (0.0-0.4); EOSINOPHILS % 7.2 % (0.0-6.0); HEMATOCRIT 34.3 % (38.2-49.6); HEMOGLOBIN 10.8 g/dL (14.0-18.0); LYMPHOCYTES # (AUTO) 0.9 (1.0-3.2); LYMPHOCYTES % 14.4 % (18.0-39.1); MEAN CORPUSCULAR HEMOGLOBIN 30.3 pg (28-32); MEAN CORPUSCULAR HGB CONC 31.5 g/dL (31-35); MEAN CORPUSCULAR VOLUME 96.1 fL (81-99); MONOCYTES # (AUTO) 0.7 (0.2-0.8); MONOCYTES % 12.1 % (4.4-11.3); PLATELET COUNT 146 x10e3/uL (140-360); RED BLOOD COUNT 3.57 x10e6/uL (4.3-5.7); RED CELL DISTRIBUTION WIDTH 15.2 % (11.7-14.4); WHITE BLOOD COUNT 6.11 x10e3/uL (4.8-10.8)
[2023-11-05 08:25] LABS: ANION GAP 21.3 mmol/L (8-16); CALCIUM 9.1 mg/dL (8.4-10.2); CREATININE, SERUM 9.66 mg/dL (0.72-1.25)
[2023-11-05 08:32] LABS: POTASSIUM 5.3 mmol/L (3.5-5.1)
[2023-11-05] MEDS ORDERED: ALBUMIN 25% 12.5GM 0.25 GM/ML BTL IV PRN (08:45)
[2023-11-05] MEDS: Vancomycin IV 1 GM in SODIUM CHLORIDE 0.9% 250ML 250 ML IV SCH (20:54)
[2023-11-06] VITALS (7 sets, daily range): BP systolic 145–166; BP diastolic 57–78; PULSE 61–64; RESP 18–19; TEMP 97.5–98; O2SAT 97–99
[2023-11-06] MEDS: LINACLOTIDE 145 MCG CAPSULE PO PRN (08:56)
[2023-11-07] VITALS (7 sets, daily range): BP systolic 89–167; BP diastolic 51–77; PULSE 62–70; RESP 17–18; TEMP 97–99.3; O2SAT 94–100
[2023-11-07 08:33] LABS: ANION GAP 16.8 mmol/L (8-16); CALCIUM 8.9 mg/dL (8.4-10.2); CREATININE, SERUM 7.84 mg/dL (0.72-1.25); POTASSIUM 4.8 mmol/L (3.5-5.1)
[2023-11-08] VITALS (9 sets, daily range): BP systolic 144–171; BP diastolic 55–73; PULSE 54–67; RESP 18; TEMP 97.3–98.2; O2SAT 95–100
[2023-11-08] MEDS ORDERED: PROPOFOL IV EMULSION 10 MG/ML 20 ML VIAL ONE (12:38)
[2023-11-08] MEDS ORDERED: ONDANSETRON HCL INJ 2MG/ML 2ML 2 MG/ML VIAL ONE (12:38)
[2023-11-08] MEDS ORDERED: GLYCOPYRROLATE INJ 0.2 MG/ML VIAL ONE (12:38)
[2023-11-08] MEDS ORDERED: LIDOCAINE HCL 2% LOCAL INJ 5 ML SDV VIAL INJ ONE (12:38)
[2023-11-08] MEDS ORDERED: SODIUM CHLORIDE 0.9% 500ML 500 ML ONE (12:39)
[2023-11-08] MEDS ORDERED: BUPIVACAINE HCL 0.5% INJ 30 ML VIAL INJ ONE (12:52)
[2023-11-08] MEDS ORDERED: FENTANYL CITRATE/PF 100MCG/2 ML INJ ONE (13:27)
[2023-11-08] MEDS ORDERED: MIDAZOLAM HCL 2 MG/2 ML VIAL ONE (13:27)
[2023-11-09] VITALS (7 sets, daily range): BP systolic 144–180; BP diastolic 49–81; PULSE 56–68; RESP 17–18; TEMP 97.5–98; O2SAT 97–100
[2023-11-09 11:00] LABS: ANION GAP 16.8 mmol/L (8-16); CALCIUM 8.3 mg/dL (8.4-10.2); CREATININE, SERUM 4.62 mg/dL (0.72-1.25); POTASSIUM 4.8 mmol/L (3.5-5.1)
[2023-11-10] VITALS (9 sets, daily range): BP systolic 112–179; BP diastolic 52–83; PULSE 60–70; RESP 17–20; TEMP 97.4–98.5; O2SAT 97–100
[2023-11-10] MEDS: SODIUM CHLORIDE 0.9% 1000ML 2,000 ML IV PRN (07:51)
[2023-11-10] MEDS: NIFEDIPINE CR 30 MG TAB PO SCH (13:43)
[2023-11-10] MEDS: HEPARIN SOD (PORCINE) 5,000 UNIT/ML VIAL SC SCH (20:25)
[2023-11-11] VITALS (7 sets, daily range): BP systolic 133–179; BP diastolic 48–75; PULSE 58–67; RESP 17–20; TEMP 97.5–98; O2SAT 97–100
[2023-11-11 05:16] LABS: BASOPHILS % 0.7 % (0.0-1.0); EOSINOPHILS # (AUTO) 0.5 (0.0-0.4); EOSINOPHILS % 8.6 % (0.0-6.0); HEMATOCRIT 33.3 % (38.2-49.6); HEMOGLOBIN 10.7 g/dL (14.0-18.0); LYMPHOCYTES # (AUTO) 1.2 (1.0-3.2); LYMPHOCYTES % 19.5 % (18.0-39.1); MEAN CORPUSCULAR HEMOGLOBIN 30.6 pg (28-32); MEAN CORPUSCULAR HGB CONC 32.1 g/dL (31-35); MEAN CORPUSCULAR VOLUME 95.1 fL (81-99); MONOCYTES # (AUTO) 0.7 (0.2-0.8); MONOCYTES % 10.9 % (4.4-11.3); NEUTROPHILS # (AUTO) 3.6 (2.1-6.9); NEUTROPHILS % 59.6 % (38.7-80.0); PLATELET COUNT 150 x10e3/uL (140-360); RED CELL DISTRIBUTION WIDTH 14.8 % (11.7-14.4); WHITE BLOOD COUNT 6.05 x10e3/uL (4.8-10.8)
[2023-11-11 05:35] LABS: ANION GAP 17.1 mmol/L (8-16); CALCIUM 8.4 mg/dL (8.4-10.2); POTASSIUM 4.1 mmol/L (3.5-5.1)
[2023-11-11 05:50] LABS: CREATININE, SERUM 6.84 mg/dL (0.72-1.25)
[2023-11-11] MEDS: ACETAMINOPHEN 325 MG TAB PO PRN (13:31)
[2023-11-11] MEDS: HYDROCODONE/APAP 5MG-325MG TAB PO PRN (19:53)
[2023-11-12] VITALS (10 sets, daily range): BP systolic 148–189; BP diastolic 46–77; PULSE 66–72; RESP 17–20; TEMP 96.7–98.2; O2SAT 97–99
[2023-11-12 06:36] LABS: HEPATITIS B SURFACE AG (P) Negative
[2023-11-13] VITALS (8 sets, daily range): BP systolic 137–188; BP diastolic 42–125; PULSE 64–72; RESP 18–19; TEMP 97.6–98.5; O2SAT 98–100
[2023-11-13] MEDS: METRONIDAZOLE 500MG/NS 100ML 100 ML IV SCH (05:23)
[2023-11-13 05:43] LABS: BASOPHILS # (AUTO) 0.1 (0.0-0.1); BASOPHILS % 0.8 % (0.0-1.0); EOSINOPHILS # (AUTO) 0.3 (0.0-0.4); EOSINOPHILS % 5.1 % (0.0-6.0); HEMATOCRIT 30.7 % (38.2-49.6); HEMOGLOBIN 9.8 g/dL (14.0-18.0); LYMPHOCYTES % 16.9 % (18.0-39.1); MEAN CORPUSCULAR HEMOGLOBIN 30.3 pg (28-32); MEAN CORPUSCULAR HGB CONC 31.9 g/dL (31-35); MONOCYTES # (AUTO) 0.8 (0.2-0.8); NEUTROPHILS # (AUTO) 3.8 (2.1-6.9); NEUTROPHILS % 63.7 % (38.7-80.0); PLATELET COUNT 184 x10e3/uL (140-360); RED BLOOD COUNT 3.23 x10e6/uL (4.3-5.7); RED CELL DISTRIBUTION WIDTH 15.3 % (11.7-14.4); WHITE BLOOD COUNT 6.02 x10e3/uL (4.8-10.8)
[2023-11-13] MEDS ORDERED: HYDRALAZINE HCL 25 MG TAB PO PRN (10:15)
[2023-11-13] MEDS: NIFEDIPINE CR 30 MG TAB PO SCH (10:39)
[2023-11-14] VITALS: BP 156/55; PULSE 63; RESP 18; TEMP 97.6; O2SAT 95
[2023-11-14 04:00] VITALS: BP 151/66; PULSE 63; RESP 17; TEMP 97.6; O2SAT 98
[2023-11-14] MEDS ORDERED: ALBUMIN 25% 12.5GM 0.25 GM/ML BTL IV PRN (08:30)
[2023-11-14 08:55] VITALS: BP 151/66; PULSE 63; RESP 17; TEMP 97.6; O2SAT 98
[2023-11-14 09:00] VITALS: BP 141/63; PULSE 63; RESP 20; TEMP 97.7; O2SAT 100
[2023-11-14] MEDS: SODIUM CHLORIDE 0.9% 250ML 250 ML ONE (09:16)
[2023-11-14 12:27] VITALS: BP 178/79; PULSE 65; RESP 20; TEMP 97.7; O2SAT 100
== END 2023-11-14 15:15 | disposition home or self-care (01) | DRG 239 ==
LOC: ER 11:46 → ERHOLD 13:52 → MED/SURG2 21:06
PROVIDERS: ADMIT Internal Medicine; ATTEND Internal Medicine
PROC: 5A1D70Z Performance of Urinary Filtration, Intermittent, Less than 6 Hours Per Day (ICD-10-PCS; 2023-11-08)
PROC: 0Y6N0ZF Detachment at Left Foot, Partial 5th Ray, Open Approach (ICD-10-PCS; principal; 2023-11-08 12:53)
DX: E11.51 Type 2 diabetes mellitus with diabetic peripheral angiopathy without gangrene (principal); N18.6 End stage renal disease; M86.172 Other acute osteomyelitis, left ankle and foot; K57.32 Diverticulitis of large intestine without perforation or abscess without bleeding; I12.0 Hypertensive chronic kidney disease with stage 5 chronic kidney disease or end stage renal disease; L03.116 Cellulitis of left lower limb; E11.22 Type 2 diabetes mellitus with diabetic chronic kidney disease; E11.42 Type 2 diabetes mellitus with diabetic polyneuropathy; E11.621 Type 2 diabetes mellitus with foot ulcer; Z99.2 Dependence on renal dialysis; E11.65 Type 2 diabetes mellitus with hyperglycemia; E66.01 Morbid (severe) obesity due to excess calories; D63.8 Anemia in other chronic diseases classified elsewhere; I25.10 Atherosclerotic heart disease of native coronary artery without angina pectoris; Z89.421 Acquired absence of other right toe(s); M19.90 Unspecified osteoarthritis, unspecified site; Z95.1 Presence of aortocoronary bypass graft; Z68.37 Body mass index [BMI] 37.0-37.9, adult; L97.529 Non-pressure chronic ulcer of other part of left foot with unspecified severity
CPT/HCPCS: 0223U; 36415; 71045; 74177; 80048; 80053; 82550; 82948; 83735; 84132; 84484; 85025; 85610; 85730; 86705; 86706; 87040; 87340; 88304; 88311; 90962; 93005; 99252; 99284; J0692; J1644; J1815; J2001; J2250; J2270; J2405; J2543; J7030; J7040; J7050

== ENCOUNTER → 2024-03-27 | Day surgery (SDC) | payer MEDICARE ==
[~2024-03-27] MED LIST changes: +DEXAMETHASONE SOD PHOS INJ 4 MG/ML SDV ONE; +FAMOTIDINE20 MG PO; +FENTANYL CITRATE/PF 100MCG/2 ML INJ ONE; +LIDOCAINE HCL 2% LOCAL INJ 5 ML SDV VIAL INJ ONE; +MIDAZOLAM HCL 2 MG/2 ML VIAL ONE; +ONDANSETRON HCL INJ 2MG/ML 2ML 2 MG/ML VIAL ONE; +PHENYLEPHRINE HCL 1% 10 MG/ML VIAL ONE; +PROPOFOL IV EMULSION 10 MG/ML 20 ML VIAL ONE; +SEVOFLURANE INHAL SOLN 250 ML PEN BTL ONE; +SUCRALFATE1 GM PO; +VITAMIN D32400 UNIT/ PO; +vit d3 PO
[2024-03-27] MEDS: SODIUM CHLORIDE 0.9% 500ML 500 ML ONE (05:47)
[2024-03-27 06:22] LABS: BASOPHILS # (AUTO) 0.1 (0.0-0.1); BASOPHILS % 1.1 % (0.0-1.0); EOSINOPHILS # (AUTO) 0.4 (0.0-0.4); EOSINOPHILS % 7.4 % (0.0-6.0); HEMATOCRIT 33.1 % (38.2-49.6); HEMOGLOBIN 11.2 g/dL (14.0-18.0); LYMPHOCYTES # (AUTO) 1.2 (1.0-3.2); LYMPHOCYTES % 22.3 % (18.0-39.1); MEAN CORPUSCULAR HEMOGLOBIN 32.9 pg (28-32); MEAN CORPUSCULAR HGB CONC 33.8 g/dL (31-35); MEAN CORPUSCULAR VOLUME 97.4 fL (81-99); MONOCYTES # (AUTO) 0.8 (0.2-0.8); MONOCYTES % 14.7 % (4.4-11.3); NEUTROPHILS # (AUTO) 2.9 (2.1-6.9); NEUTROPHILS % 53.9 % (38.7-80.0); PLATELET COUNT 167 x10e3/uL (140-360); RED CELL DISTRIBUTION WIDTH 14.5 % (11.7-14.4); WHITE BLOOD COUNT 5.37 x10e3/uL (4.8-10.8)
[2024-03-27 06:44] LABS: INR 0.87; PROTHROMBIN TIME 12.4 seconds (11.9-14.5)
[2024-03-27 06:45] LABS: ANION GAP 19.4 mmol/L (8-16); CALCIUM 9.5 mg/dL (8.4-10.2); CREATININE, SERUM 7.36 mg/dL (0.72-1.25); PARTIAL THROMBOPLASTIN TIME 38.3 seconds (23.8-35.5); POTASSIUM 4.4 mmol/L (3.5-5.1)
[2024-03-27 08:44] VITALS: BP 167/77; PULSE 71; RESP 18; O2SAT 95
== END | disposition home or self-care (01) ==
LOC: OR 05:10
PROVIDERS: ATTEND Podiatrist Foot & Ankle Surgery
DX: M86.571 Other chronic hematogenous osteomyelitis, right ankle and foot (principal); L97.519 Non-pressure chronic ulcer of other part of right foot with unspecified severity; G47.33 Obstructive sleep apnea (adult) (pediatric); D64.9 Anemia, unspecified; E11.22 Type 2 diabetes mellitus with diabetic chronic kidney disease; I12.0 Hypertensive chronic kidney disease with stage 5 chronic kidney disease or end stage renal disease; N18.6 End stage renal disease; I25.810 Atherosclerosis of coronary artery bypass graft(s) without angina pectoris; I44.0 Atrioventricular block, first degree; E78.5 Hyperlipidemia, unspecified; E66.01 Morbid (severe) obesity due to excess calories; K21.9 Gastro-esophageal reflux disease without esophagitis; I49.9 Cardiac arrhythmia, unspecified; F41.9 Anxiety disorder, unspecified; M54.9 Dorsalgia, unspecified; M10.9 Gout, unspecified; M06.9 Rheumatoid arthritis, unspecified; Z99.2 Dependence on renal dialysis; Z01.810 Encounter for preprocedural cardiovascular examination; Z79.02 Long term (current) use of antithrombotics/antiplatelets; Z79.4 Long term (current) use of insulin; Z79.899 Other long term (current) drug therapy; Z95.810 Presence of automatic (implantable) cardiac defibrillator; Z95.5 Presence of coronary angioplasty implant and graft; Z95.1 Presence of aortocoronary bypass graft
CPT/HCPCS: 28315; 36415; 80048; 85025; 85610; 85730; 88307; 88311; 93005; J0690; J1100; J2003; J2371; J2405; J2704; J3010; J7040; 88304; J2250

== ENCOUNTER 2024-04-01 10:17 | Inpatient (IN) | payer MEDICARE ==
[~2024-04-01] VITALS: Ht 172.7 cm; Wt 117.9 kg
[2024-04-01] VITALS (8 sets, daily range): BP systolic 128–153; BP diastolic 45–84; PULSE 76–95; RESP 18–20; TEMP 98.1–99.8; O2SAT 96–100
[~2024-04-01 10:17] MED LIST changes: -DEXAMETHASONE SOD PHOS INJ 4 MG/ML SDV ONE; -FENTANYL CITRATE/PF 100MCG/2 ML INJ ONE; -LIDOCAINE HCL 2% LOCAL INJ 5 ML SDV VIAL INJ ONE; -MIDAZOLAM HCL 2 MG/2 ML VIAL ONE; -ONDANSETRON HCL INJ 2MG/ML 2ML 2 MG/ML VIAL ONE; -PHENYLEPHRINE HCL 1% 10 MG/ML VIAL ONE; -PROPOFOL IV EMULSION 10 MG/ML 20 ML VIAL ONE; -SEVOFLURANE INHAL SOLN 250 ML PEN BTL ONE; -VITAMIN D32400 UNIT/ PO
[2024-04-01 11:37] LABS: BASOPHILS % 0.4 % (0.0-1.0); EOSINOPHILS # (AUTO) 0.2 (0.0-0.4); EOSINOPHILS % 2.5 % (0.0-6.0); HEMATOCRIT 27.9 % (38.2-49.6); HEMOGLOBIN 9.2 g/dL (14.0-18.0); LYMPHOCYTES # (AUTO) 0.6 (1.0-3.2); LYMPHOCYTES % 7.3 % (18.0-39.1); MEAN CORPUSCULAR HEMOGLOBIN 32.5 pg (28-32); MEAN CORPUSCULAR VOLUME 98.6 fL (81-99); MONOCYTES # (AUTO) 1.2 (0.2-0.8); MONOCYTES % 14.2 % (4.4-11.3); NEUTROPHILS # (AUTO) 6.2 (2.1-6.9); NEUTROPHILS % 74.9 % (38.7-80.0); PLATELET COUNT 166 x10e3/uL (140-360); RED BLOOD COUNT 2.83 x10e6/uL (4.3-5.7); RED CELL DISTRIBUTION WIDTH 14.6 % (11.7-14.4); WHITE BLOOD COUNT 8.24 x10e3/uL (4.8-10.8)
[2024-04-01 11:40] LABS: INR 1.06; PROTHROMBIN TIME 14.4 seconds (11.9-14.5)
[2024-04-01 11:48] LABS: ALBUMIN 3.1 g/dL (3.5-5.0); ALBUMIN/GLOBULIN RATIO 0.7 (0.8-2.0); ANION GAP 20.6 mmol/L (8-16); BILIRUBIN,TOTAL 0.7 mg/dL (0.2-1.2); CALCIUM 9.3 mg/dL (8.4-10.2); CREATININE, SERUM 8.12 mg/dL (0.72-1.25); MAGNESIUM 2.2 MG/DL (1.3-2.1); POTASSIUM 4.6 mmol/L (3.5-5.1); TOTAL PROTEIN 7.4 g/dL (6.5-8.1)
[2024-04-01] MEDS: Vancomycin IV 1 GM in SODIUM CHLORIDE 0.9% 250ML 250 ML IV ONE (12:14)
[2024-04-01] MEDS ORDERED: VITAMIN D32400 UNIT/ PO (18:18)
[2024-04-01] MEDS: INSULIN LISPRO 100 UNIT/1 ML 3ML VIAL SQ SCH ×2 (18:22→22:03)
[2024-04-01] MEDS ORDERED: DEXTROSE 50% SYRINGE 50 ML IV PRN (19:00)
[2024-04-01] MEDS: INSULIN LISPRO 100 UNIT/1 ML 3ML VIAL SQ ONE (19:44)
[2024-04-01] MEDS: ONDANSETRON HCL INJ 2MG/ML 2ML 2 MG/ML VIAL IV PRN (19:50)
[2024-04-01] MEDS: Morphine 4mg INJECTION 4 MG/ML INJ IV PRN (19:50)
[2024-04-01] MEDS: INSULIN GLARGINE 100 UNITS/ML VIAL SQ SCH (22:02)
[2024-04-02] VITALS (8 sets, daily range): BP systolic 120–175; BP diastolic 45–82; PULSE 69–75; RESP 16–20; TEMP 97.9–99.6; O2SAT 96–100
[2024-04-02 05:58] LABS: BASOPHILS % 0.5 % (0.0-1.0); EOSINOPHILS # (AUTO) 0.3 (0.0-0.4); EOSINOPHILS % 4.2 % (0.0-6.0); HEMATOCRIT 26.7 % (38.2-49.6); HEMOGLOBIN 8.7 g/dL (14.0-18.0); LYMPHOCYTES # (AUTO) 0.8 (1.0-3.2); LYMPHOCYTES % 10.7 % (18.0-39.1); MEAN CORPUSCULAR HEMOGLOBIN 32.3 pg (28-32); MEAN CORPUSCULAR HGB CONC 32.6 g/dL (31-35); MEAN CORPUSCULAR VOLUME 99.3 fL (81-99); MONOCYTES # (AUTO) 1.1 (0.2-0.8); MONOCYTES % 14.3 % (4.4-11.3); NEUTROPHILS # (AUTO) 5.4 (2.1-6.9); NEUTROPHILS % 69.4 % (38.7-80.0); PLATELET COUNT 149 x10e3/uL (140-360); RED BLOOD COUNT 2.69 x10e6/uL (4.3-5.7); RED CELL DISTRIBUTION WIDTH 14.4 % (11.7-14.4); WHITE BLOOD COUNT 7.78 x10e3/uL (4.8-10.8)
[2024-04-02 06:23] LABS: ALBUMIN 2.7 g/dL (3.5-5.0); ALBUMIN/GLOBULIN RATIO 0.7 (0.8-2.0); ANION GAP 18.9 mmol/L (8-16); BILIRUBIN,TOTAL 0.7 mg/dL (0.2-1.2); CALCIUM 8.9 mg/dL (8.4-10.2); CREATININE, SERUM 9.62 mg/dL (0.72-1.25); POTASSIUM 4.9 mmol/L (3.5-5.1); TOTAL PROTEIN 6.7 g/dL (6.5-8.1)
[2024-04-02 06:47] LABS: CHOL/HDL RATIO 8.5 (3.9-4.7)
[2024-04-02] MEDS: INSULIN LISPRO 100 UNIT/1 ML 3ML VIAL SQ SCH ×2 (07:30→12:00)
[2024-04-02] MEDS: CALCIUM ACETATE 667 MG GELCAP PO SCH (08:30)
[2024-04-02] MEDS ORDERED: EPOETIN ALFA-EPBX 10,000 UNIT/ML VIAL SC ONE (08:30)
[2024-04-02] MEDS ORDERED: SIMETHICONE 80 MG CHEW PO PRN (10:15)
[2024-04-02] MEDS ORDERED: ALBUTEROL/IPRATROPIUM 3 ML NEB NEB PRN (10:15)
[2024-04-02] MEDS ORDERED: DOCUSATE SODIUM 100 MG CAP PO PRN (10:15)
[2024-04-02] MEDS: Vancomycin IV 1 GM in SODIUM CHLORIDE 0.9% 250ML 250 ML IV SCH (13:18)
[2024-04-02] MEDS: EPOETIN ALFA-EPBX 10,000 UNIT/ML VIAL SC ONE (13:19)
[2024-04-03] VITALS (12 sets, daily range): BP systolic 128–158; BP diastolic 37–94; PULSE 65–78; RESP 16–20; TEMP 97.6–98.8; O2SAT 95–100
[2024-04-03] MEDS: DEXTROSE 50% SYRINGE 50 ML IV PRN (00:13)
[2024-04-03 06:41] LABS: BASOPHILS % 0.3 % (0.0-1.0); EOSINOPHILS # (AUTO) 0.3 (0.0-0.4); EOSINOPHILS % 3.3 % (0.0-6.0); HEMATOCRIT 25.9 % (38.2-49.6); HEMOGLOBIN 8.4 g/dL (14.0-18.0); LYMPHOCYTES # (AUTO) 0.8 (1.0-3.2); LYMPHOCYTES % 9.1 % (18.0-39.1); MEAN CORPUSCULAR HEMOGLOBIN 32.2 pg (28-32); MEAN CORPUSCULAR HGB CONC 32.4 g/dL (31-35); MEAN CORPUSCULAR VOLUME 99.2 fL (81-99); MONOCYTES # (AUTO) 1.3 (0.2-0.8); MONOCYTES % 14.8 % (4.4-11.3); NEUTROPHILS # (AUTO) 6.2 (2.1-6.9); NEUTROPHILS % 71.6 % (38.7-80.0); PLATELET COUNT 177 x10e3/uL (140-360); RED BLOOD COUNT 2.61 x10e6/uL (4.3-5.7); RED CELL DISTRIBUTION WIDTH 14.5 % (11.7-14.4); WHITE BLOOD COUNT 8.67 x10e3/uL (4.8-10.8)
[2024-04-03 07:19] LABS: ANION GAP 18.6 mmol/L (8-16); CALCIUM 9.1 mg/dL (8.4-10.2); CREATININE, SERUM 7.75 mg/dL (0.72-1.25); POTASSIUM 4.6 mmol/L (3.5-5.1)
[2024-04-03] MEDS ORDERED: FENTANYL CITRATE/PF 100MCG/2 ML INJ ONE (11:25)
[2024-04-03] MEDS ORDERED: DEXMEDETOMIDINE HCL 2 ML ONE (11:32)
[2024-04-04] VITALS (10 sets, daily range): BP systolic 118–164; BP diastolic 54–76; PULSE 68–78; RESP 15–20; TEMP 97.6–99.9; O2SAT 94–100
[2024-04-04 05:05] LABS: HEPATITIS B CORE AB TOTAL Negative; HEPATITIS B SURFACE AG (P) Negative
[2024-04-04 06:03] LABS: BASOPHILS # (AUTO) 0.1 (0.0-0.1); BASOPHILS % 0.6 % (0.0-1.0); EOSINOPHILS # (AUTO) 0.4 (0.0-0.4); EOSINOPHILS % 4.2 % (0.0-6.0); HEMATOCRIT 26.4 % (38.2-49.6); HEMOGLOBIN 8.5 g/dL (14.0-18.0); LYMPHOCYTES % 11.3 % (18.0-39.1); MEAN CORPUSCULAR HEMOGLOBIN 32.1 pg (28-32); MEAN CORPUSCULAR HGB CONC 32.2 g/dL (31-35); MEAN CORPUSCULAR VOLUME 99.6 fL (81-99); MONOCYTES # (AUTO) 1.2 (0.2-0.8); NEUTROPHILS # (AUTO) 6.3 (2.1-6.9); NEUTROPHILS % 69.8 % (38.7-80.0); PLATELET COUNT 210 x10e3/uL (140-360); RED BLOOD COUNT 2.65 x10e6/uL (4.3-5.7); RED CELL DISTRIBUTION WIDTH 14.4 % (11.7-14.4); WHITE BLOOD COUNT 8.95 x10e3/uL (4.8-10.8)
[2024-04-04 06:30] LABS: ANION GAP 18.8 mmol/L (8-16); CREATININE, SERUM 9.68 mg/dL (0.72-1.25); POTASSIUM 4.8 mmol/L (3.5-5.1)
[2024-04-04] MEDS: EPOETIN ALFA-EPBX 10,000 UNIT/ML VIAL SC ONE (12:24)
[2024-04-04] MEDS: SODIUM CHLORIDE 0.9% 1000ML 1,000 ML ONE (13:07)
[2024-04-04] MEDS: HEPARIN SOD/SOD CHLORIDE 2,000 ML ONE (13:07)
[2024-04-04] MEDS: VERAPAMIL HCL 2.5 MG/ML 2 ML VIAL ONE (13:08)
[2024-04-04] MEDS: NITROGLYCERIN/D5W 200 MCG/ML 0 ML ONE (13:08)
[2024-04-04] MEDS: HEPARIN SOD (PORCINE) 1000 UNIT/ML 30ML ONE (13:08)
[2024-04-04] MEDS: SODIUM CHLORIDE 0.9% 1000ML 2,000 ML ONE ×2 (13:08→13:11)
[2024-04-04] MEDS: LIDOCAINE HCL 2% LOCAL 20 ML VIAL ONE (13:08)
[2024-04-04] MEDS: ASPIRIN 325 MG TAB ONE (13:09)
[2024-04-04] MEDS: MIDAZOLAM HCL 2 MG/2 ML VIAL ONE (13:09)
[2024-04-04] MEDS: CLOPIDOGREL BISULFATE 75 MG TAB ONE (13:09)
[2024-04-04] MEDS: FENTANYL CITRATE/PF 100MCG/2 ML INJ ONE (13:09)
[2024-04-04] MEDS: IOPAMIDOL 370 MG/ML 100 ML INFUS..BTL INJ ONE (13:09)
[2024-04-04] MEDS: LIDOCAINE/PRILOCAINE 2.5-2.5% KIT TOP PRN (13:54)
[2024-04-05] VITALS (10 sets, daily range): BP systolic 118–156; BP diastolic 49–60; PULSE 71–78; RESP 17–20; TEMP 98–98.6; O2SAT 95–100
[2024-04-05 08:07] LABS: BASOPHILS % 0.5 % (0.0-1.0); EOSINOPHILS # (AUTO) 0.2 (0.0-0.4); EOSINOPHILS % 3.3 % (0.0-6.0); HEMOGLOBIN 8.9 g/dL (14.0-18.0); LYMPHOCYTES # (AUTO) 0.6 (1.0-3.2); LYMPHOCYTES % 7.7 % (18.0-39.1); MEAN CORPUSCULAR HEMOGLOBIN 32.4 pg (28-32); MEAN CORPUSCULAR HGB CONC 31.8 g/dL (31-35); MEAN CORPUSCULAR VOLUME 101.8 fL (81-99); MONOCYTES # (AUTO) 0.8 (0.2-0.8); NEUTROPHILS # (AUTO) 5.6 (2.1-6.9); NEUTROPHILS % 76.1 % (38.7-80.0); PLATELET COUNT 237 x10e3/uL (140-360); RED BLOOD COUNT 2.75 x10e6/uL (4.3-5.7); RED CELL DISTRIBUTION WIDTH 14.5 % (11.7-14.4); WHITE BLOOD COUNT 7.36 x10e3/uL (4.8-10.8)
[2024-04-05 08:41] LABS: ANION GAP 20.2 mmol/L (8-16); CALCIUM 9.4 mg/dL (8.4-10.2); CREATININE, SERUM 7.28 mg/dL (0.72-1.25)
[2024-04-05 08:52] LABS: POTASSIUM 5.2 mmol/L (3.5-5.1)
[2024-04-05] MEDS: SENNA-S TABLET PO SCH (17:20)
[2024-04-05] MEDS: CLOPIDOGREL BISULFATE 75 MG TAB PO SCH (17:20)
[2024-04-05] MEDS: DOCUSATE SODIUM 100 MG CAP PO SCH (17:21)
[2024-04-05] MEDS: ARTIFICIAL TEARS (OPTH) 15 ML BTL OU SCH (18:17)
[2024-04-05] MEDS: ATORVASTATIN 40 MG TAB PO SCH (21:27)
[2024-04-06] VITALS (11 sets, daily range): BP systolic 129–179; BP diastolic 34–67; PULSE 67–83; RESP 16–22; TEMP 97.2–98.6; O2SAT 96–100
[2024-04-06 06:27] LABS: BASOPHILS % 0.3 % (0.0-1.0); EOSINOPHILS # (AUTO) 0.4 (0.0-0.4); EOSINOPHILS % 4.5 % (0.0-6.0); HEMATOCRIT 26.6 % (38.2-49.6); HEMOGLOBIN 8.3 g/dL (14.0-18.0); LYMPHOCYTES # (AUTO) 0.9 (1.0-3.2); LYMPHOCYTES % 9.1 % (18.0-39.1); MEAN CORPUSCULAR HEMOGLOBIN 31.2 pg (28-32); MEAN CORPUSCULAR HGB CONC 31.2 g/dL (31-35); MONOCYTES # (AUTO) 0.8 (0.2-0.8); MONOCYTES % 8.4 % (4.4-11.3); NEUTROPHILS # (AUTO) 7.2 (2.1-6.9); NEUTROPHILS % 76.4 % (38.7-80.0); PLATELET COUNT 279 x10e3/uL (140-360); RED BLOOD COUNT 2.66 x10e6/uL (4.3-5.7); RED CELL DISTRIBUTION WIDTH 14.3 % (11.7-14.4); WHITE BLOOD COUNT 9.38 x10e3/uL (4.8-10.8)
[2024-04-06 06:59] LABS: CALCIUM 9.6 mg/dL (8.4-10.2); CREATININE, SERUM 9.09 mg/dL (0.72-1.25)
[2024-04-06 07:03] LABS: POTASSIUM 5.3 mmol/L (3.5-5.1)
[2024-04-06 07:21] LABS: ANION GAP 20.2 mmol/L (8-16)
[2024-04-06] MEDS: AMLODIPINE BESYLATE 5 MG TAB PO SCH (08:46)
[2024-04-06] MEDS ORDERED: NITROGLYCERIN 0.4 MG SUBL SL PRN (13:00)
[2024-04-06] MEDS: METOPROLOL TARTRATE INJ 1 MG/ML VIAL IV PRN (17:58)
[2024-04-06] MEDS: MELATONIN 3 MG TAB PO PRN (21:21)
[2024-04-07] VITALS (10 sets, daily range): BP systolic 130–187; BP diastolic 54–81; PULSE 67–75; RESP 17–21; TEMP 97.7–99; O2SAT 96–100
[2024-04-07] MEDS ORDERED: SODIUM CHLORIDE 0.9% 1000ML 2,000 ML IV PRN (07:45)
[2024-04-07] MEDS ORDERED: INSULIN GLARGINE 100 UNITS/ML VIAL SQ SCH (13:00)
[2024-04-07] MEDS: AMLODIPINE BESYLATE 5 MG TAB PO SCH (13:29)
[2024-04-07] MEDS: PSYLLIUM 6GM PACKET PO SCH (13:30)
[2024-04-07] MEDS: INSULIN GLARGINE 100 UNITS/ML VIAL SQ ONE ×2 (13:33→14:32)
[2024-04-07] MEDS: HYDROXYZINE HCL 25 MG TAB PO PRN (14:00)
[2024-04-07] MEDS: ACETAMINOPHEN 325 MG TAB PO PRN (18:18)
[2024-04-07] MEDS: INSULIN GLARGINE 100 UNITS/ML VIAL SQ SCH (20:44)
[2024-04-08] VITALS (10 sets, daily range): BP systolic 133–161; BP diastolic 49–66; PULSE 64–81; RESP 17–19; TEMP 97.7–98.8; O2SAT 95–100
[2024-04-08] MEDS: AMLODIPINE BESYLATE 5 MG TAB PO SCH (08:57)
[2024-04-08] MEDS ORDERED: FENTANYL CITRATE/PF 100MCG/2 ML INJ ONE ×2 (10:01→12:37)
[2024-04-08] MEDS ORDERED: PROPOFOL IV EMULSION 10 MG/ML 20 ML VIAL ONE ×3 (10:01→12:41)
[2024-04-08] MEDS ORDERED: SEVOFLURANE INHAL SOLN 250 ML PEN BTL ONE ×2 (10:01→12:37)
[2024-04-08] MEDS ORDERED: LIDOCAINE HCL 2% LOCAL INJ 5 ML SDV VIAL INJ ONE ×2 (10:01→12:37)
[2024-04-08] MEDS ORDERED: ACETAMINOPHEN 1000 MG/100 ML 0 ML IV ONE (10:01)
[2024-04-08] MEDS ORDERED: SODIUM CHLORIDE 0.9% 0 ML ONE (10:30)
[2024-04-08] MEDS ORDERED: MIDAZOLAM HCL 2 MG/2 ML VIAL ONE (12:37)
[2024-04-08] MEDS ORDERED: KETAMINE 50MG/5ML SYR ONE (12:37)
[2024-04-09] VITALS (9 sets, daily range): BP systolic 133–150; BP diastolic 39–60; PULSE 66–75; RESP 17–18; TEMP 97.4–98.8; O2SAT 97–100
[2024-04-09 06:14] LABS: BASOPHILS % 0.4 % (0.0-1.0); EOSINOPHILS # (AUTO) 0.4 (0.0-0.4); EOSINOPHILS % 4.3 % (0.0-6.0); HEMATOCRIT 23.1 % (38.2-49.6); LYMPHOCYTES % 10.3 % (18.0-39.1); MEAN CORPUSCULAR HEMOGLOBIN 31.4 pg (28-32); MEAN CORPUSCULAR VOLUME 97.9 fL (81-99); MONOCYTES # (AUTO) 0.8 (0.2-0.8); MONOCYTES % 8.4 % (4.4-11.3); NEUTROPHILS # (AUTO) 7.3 (2.1-6.9); NEUTROPHILS % 75.8 % (38.7-80.0); PLATELET COUNT 374 x10e3/uL (140-360); RED BLOOD COUNT 2.36 x10e6/uL (4.3-5.7); RED CELL DISTRIBUTION WIDTH 13.9 % (11.7-14.4); WHITE BLOOD COUNT 9.64 x10e3/uL (4.8-10.8)
[2024-04-09 06:17] LABS: HEMOGLOBIN 7.4 g/dL (14.0-18.0)
[2024-04-09 06:33] LABS: ANION GAP 18.5 mmol/L (8-16); CALCIUM 8.6 mg/dL (8.4-10.2); CREATININE, SERUM 9.16 mg/dL (0.72-1.25); POTASSIUM 4.5 mmol/L (3.5-5.1)
[2024-04-09] MEDS ORDERED: HEPARIN SOD (PORCINE) 1000 UNIT/ML SDV IV PRN (08:30)
[2024-04-09] MEDS ORDERED: EPOETIN ALFA-EPBX 10,000 UNIT/ML VIAL SC ONE (09:30)
[2024-04-09] MEDS: EPOETIN ALFA-EPBX 10,000 UNIT/ML VIAL SC ONE (12:13)
[2024-04-10] VITALS (9 sets, daily range): BP systolic 115–184; BP diastolic 36–68; PULSE 60–69; RESP 16–20; TEMP 97.4–98; O2SAT 95–100
[2024-04-10 07:21] LABS: BASOPHILS # (AUTO) 0.1 (0.0-0.1); BASOPHILS % 0.6 % (0.0-1.0); EOSINOPHILS # (AUTO) 0.2 (0.0-0.4); EOSINOPHILS % 1.6 % (0.0-6.0); HEMATOCRIT 27.5 % (38.2-49.6); HEMOGLOBIN 8.5 g/dL (14.0-18.0); LYMPHOCYTES # (AUTO) 0.8 (1.0-3.2); LYMPHOCYTES % 6.9 % (18.0-39.1); MEAN CORPUSCULAR HEMOGLOBIN 31.5 pg (28-32); MEAN CORPUSCULAR HGB CONC 30.9 g/dL (31-35); MEAN CORPUSCULAR VOLUME 101.9 fL (81-99); MONOCYTES # (AUTO) 0.6 (0.2-0.8); MONOCYTES % 5.7 % (4.4-11.3); NEUTROPHILS # (AUTO) 9.5 (2.1-6.9); NEUTROPHILS % 84.4 % (38.7-80.0); PLATELET COUNT 372 x10e3/uL (140-360); RED CELL DISTRIBUTION WIDTH 13.9 % (11.7-14.4)
[2024-04-10 07:50] LABS: ANION GAP 20.2 mmol/L (8-16); CALCIUM 8.9 mg/dL (8.4-10.2); CREATININE, SERUM 7.98 mg/dL (0.72-1.25)
[2024-04-10 08:18] LABS: POTASSIUM 6.2 mmol/L (3.5-5.1)
[2024-04-11] VITALS (10 sets, daily range): BP systolic 132–178; BP diastolic 31–66; PULSE 64–81; RESP 17–20; TEMP 97.3–98.6; O2SAT 96–100
[2024-04-11] MEDS ORDERED: EPOETIN ALFA-EPBX 10,000 UNIT/ML VIAL SC SCH (08:15)
[2024-04-11] MEDS: CIPROFLOXACIN 500 MG TAB PO SCH (08:30)
[2024-04-12] VITALS (9 sets, daily range): BP systolic 108–154; BP diastolic 52–79; PULSE 70–83; RESP 18; TEMP 97.9–98.8; O2SAT 94–100
[2024-04-12] MEDS: CARVEDILOL 12.5 MG TAB PO SCH (09:28)
[2024-04-13] VITALS (9 sets, daily range): BP systolic 148–176; BP diastolic 52–74; PULSE 59–79; RESP 16–18; TEMP 97.6–98.7; O2SAT 95–100
[2024-04-13] MEDS: INSULIN LISPRO 100 UNIT/1 ML 3ML VIAL SQ SCH (08:55)
[2024-04-13] MEDS: INSULIN GLARGINE 100 UNITS/ML VIAL SQ ONE (12:40)
[2024-04-13] MEDS: INSULIN LISPRO 100 UNIT/1 ML 3ML VIAL SQ ONE (12:41)
[2024-04-13 15:17] LABS: BASOPHILS % 0.7 % (0.0-1.0); EOSINOPHILS % 0.2 % (0.0-6.0); HEMATOCRIT 22.5 % (38.2-49.6); LYMPHOCYTES # (AUTO) 0.4 (1.0-3.2); LYMPHOCYTES % 9.2 % (18.0-39.1); MEAN CORPUSCULAR HEMOGLOBIN 30.8 pg (28-32); MEAN CORPUSCULAR HGB CONC 31.1 g/dL (31-35); MEAN CORPUSCULAR VOLUME 99.1 fL (81-99); MONOCYTES # (AUTO) 0.6 (0.2-0.8); MONOCYTES % 12.6 % (4.4-11.3); NEUTROPHILS # (AUTO) 3.4 (2.1-6.9); NEUTROPHILS % 76.6 % (38.7-80.0); PLATELET COUNT 296 x10e3/uL (140-360); RED BLOOD COUNT 2.27 x10e6/uL (4.3-5.7); RED CELL DISTRIBUTION WIDTH 14.1 % (11.7-14.4)
[2024-04-13 15:18] LABS: WHITE BLOOD COUNT 4.37 x10e3/uL (4.8-10.8)
[2024-04-13 15:43] LABS: ANION GAP 21.4 mmol/L (8-16); CALCIUM 8.6 mg/dL (8.4-10.2); CREATININE, SERUM 9.35 mg/dL (0.72-1.25); POTASSIUM 5.4 mmol/L (3.5-5.1)
[2024-04-13] MEDS: INSULIN GLARGINE 100 UNITS/ML VIAL SQ SCH (20:39)
[2024-04-14] VITALS (11 sets, daily range): BP systolic 124–179; BP diastolic 45–61; PULSE 60–82; RESP 17–22; TEMP 97.3–98.9; O2SAT 95–99
[2024-04-14] MEDS: GUAIFENESIN/DEXTROMETHORPHAN LIQD 5 ML UDC PO SCH (11:37)
[2024-04-14] MEDS ORDERED: ALBUMIN 25% 12.5GM 0.25 GM/ML BTL IV PRN (18:15)
[2024-04-15] VITALS (8 sets, daily range): BP systolic 144–168; BP diastolic 56–62; PULSE 60–72; RESP 17–18; TEMP 97.4–98; O2SAT 95–100
[2024-04-15 09:20] LABS: HEMATOCRIT 23.3 % (38.2-49.6)
[2024-04-15 09:25] LABS: HEMOGLOBIN 7.4 g/dL (14.0-18.0)
[2024-04-15] MEDS: SODIUM CHLORIDE 0.9% 250ML 250 ML IV ONE (12:08)
[2024-04-16] VITALS (7 sets, daily range): BP systolic 148–164; BP diastolic 29–79; PULSE 59–77; RESP 18–20; TEMP 97.4–98; O2SAT 96–100
[2024-04-16] MEDS: HYDRALAZINE HCL 25 MG TAB PO SCH (05:47)
[2024-04-16] MEDS: BENZONATATE 100 MG CAP PO SCH (08:38)
[2024-04-16 10:01] LABS: ALBUMIN 2.9 g/dL (3.5-5.0); ALBUMIN/GLOBULIN RATIO 0.8 (0.8-2.0); ANION GAP 19.9 mmol/L (8-16); BILIRUBIN,TOTAL 0.5 mg/dL (0.2-1.2); CALCIUM 8.5 mg/dL (8.4-10.2); CREATININE, SERUM 8.61 mg/dL (0.72-1.25); TOTAL PROTEIN 6.7 g/dL (6.5-8.1)
[2024-04-16 10:02] LABS: POTASSIUM 5.9 mmol/L (3.5-5.1)
[2024-04-16] MEDS ORDERED: Docusate Sodium PO (11:52)
[2024-04-16] MEDS ORDERED: Insulin Glargine SQ (11:52)
[2024-04-16] MEDS ORDERED: BENZONATATE100 MG PO (11:52)
[2024-04-16] MEDS ORDERED: Calcium Acetate PO (11:52)
[2024-04-16] MEDS ORDERED: NORVASC5 MG PO (11:52)
[2024-04-16] MEDS ORDERED: HYDRALAZINE HCL25 MG PO (11:52)
[2024-04-16] MEDS ORDERED: COREG12.5 MG PO (11:52)
[2024-04-16] MEDS ORDERED: CIPRO500 MG PO (11:53)
[2024-04-16 12:48] LABS: BASOPHILS % 0.6 % (0.0-1.0); EOSINOPHILS # (AUTO) 0.2 (0.0-0.4); EOSINOPHILS % 3.6 % (0.0-6.0); HEMATOCRIT 25.1 % (38.2-49.6); HEMOGLOBIN 7.9 g/dL (14.0-18.0); LYMPHOCYTES # (AUTO) 0.7 (1.0-3.2); LYMPHOCYTES % 14.8 % (18.0-39.1); MEAN CORPUSCULAR HEMOGLOBIN 31.1 pg (28-32); MEAN CORPUSCULAR HGB CONC 31.5 g/dL (31-35); MEAN CORPUSCULAR VOLUME 98.8 fL (81-99); MONOCYTES # (AUTO) 0.4 (0.2-0.8); NEUTROPHILS # (AUTO) 3.3 (2.1-6.9); NEUTROPHILS % 71.6 % (38.7-80.0); PLATELET COUNT 302 x10e3/uL (140-360); RED BLOOD COUNT 2.54 x10e6/uL (4.3-5.7); RED CELL DISTRIBUTION WIDTH 14.1 % (11.7-14.4); WHITE BLOOD COUNT 4.67 x10e3/uL (4.8-10.8)
== END 2024-04-16 22:56 | DRG 907 ==
LOC: ER 10:26 → ERHOLD 12:05 → MED/SURG3 13:59
PROVIDERS: ADMIT Internal Medicine; ATTEND Internal Medicine
PROC: 5A1D70Z Performance of Urinary Filtration, Intermittent, Less than 6 Hours Per Day (ICD-10-PCS; 2024-04-02)
PROC: 0JDQ0ZZ Extraction of Right Foot Subcutaneous Tissue and Fascia, Open Approach (ICD-10-PCS; principal; 2024-04-03 12:04)
PROC: 0Y6P0Z0 Detachment at Right 1st Toe, Complete, Open Approach (ICD-10-PCS; 2024-04-08)
PROC: 0Y6R0Z0 Detachment at Right 2nd Toe, Complete, Open Approach (ICD-10-PCS; 2024-04-08)
DX: T81.31XA Disruption of external operation (surgical) wound, not elsewhere classified, initial encounter (principal); N18.6 End stage renal disease; I12.0 Hypertensive chronic kidney disease with stage 5 chronic kidney disease or end stage renal disease; E87.1 Hypo-osmolality and hyponatremia; L03.115 Cellulitis of right lower limb; M86.171 Other acute osteomyelitis, right ankle and foot; M86.671 Other chronic osteomyelitis, right ankle and foot; L02.611 Cutaneous abscess of right foot; T82.818A Embolism due to vascular prosthetic devices, implants and grafts, initial encounter; L97.518 Non-pressure chronic ulcer of other part of right foot with other specified severity; E11.69 Type 2 diabetes mellitus with other specified complication; E11.621 Type 2 diabetes mellitus with foot ulcer; E11.22 Type 2 diabetes mellitus with diabetic chronic kidney disease; E83.39 Other disorders of phosphorus metabolism; B96.1 Klebsiella pneumoniae [K. pneumoniae] as the cause of diseases classified elsewhere; D63.1 Anemia in chronic kidney disease; Z99.2 Dependence on renal dialysis; E11.42 Type 2 diabetes mellitus with diabetic polyneuropathy; E11.51 Type 2 diabetes mellitus with diabetic peripheral angiopathy without gangrene; E78.5 Hyperlipidemia, unspecified; I25.10 Atherosclerotic heart disease of native coronary artery without angina pectoris; M65.971 Unspecified synovitis and tenosynovitis, right ankle and foot; K59.00 Constipation, unspecified; R53.81 Other malaise; E66.01 Morbid (severe) obesity due to excess calories; Z68.39 Body mass index [BMI] 39.0-39.9, adult; Z79.02 Long term (current) use of antithrombotics/antiplatelets; Z79.82 Long term (current) use of aspirin; Z79.4 Long term (current) use of insulin; Z95.1 Presence of aortocoronary bypass graft; Z95.5 Presence of coronary angioplasty implant and graft; Z95.0 Presence of cardiac pacemaker; I25.2 Old myocardial infarction; Z89.421 Acquired absence of other right toe(s); Z89.422 Acquired absence of other left toe(s); Y84.8 Other medical procedures as the cause of abnormal reaction of the patient, or of later complication, without mention of misadventure at the time of the procedure; Z90.49 Acquired absence of other specified parts of digestive tract
CPT/HCPCS: 36247; 36415; 37228; 37229; 37232; 71045; 71046; 75630; 75736; 76937; 80048; 80053; 80061; 82948; 83036; 83735; 84100; 84132; 84295; 84484; 85014; 85018; 85025; 85610; 85730; 86704; 86706; 86850; 86900; 86920; 87040; 87071; 87075; 87186; 87205; 87340; 88304; 88311; 93005; 93925; 94799; 96372; 99152; 99153; 99252; 99284; C1724; C1725; C1760; C1769; C1887; C1894; J0692; J1644; J1815; J2003; J2250; J2270; J2405; J3410; J7030; J7050; J7799; Q9967

== ENCOUNTER 2024-10-26 16:15 | Inpatient (IN) | payer MEDICARE ==
[~2024-10-26] VITALS: Ht 172.7 cm; Wt 115.7 kg
[~2024-10-26 16:15] MED LIST changes: +BENZONATATE100 MG PO; +COREG12.5 MG PO; +Calcium Acetate PO; +Docusate Sodium PO; +HYDRALAZINE HCL25 MG PO; +Insulin Glargine SQ; +NORVASC5 MG PO; +VITAMIN D32400 UNIT/ PO
[2024-10-26 17:07] LABS: BASOPHILS % 0.4 % (0.0-1.0); EOSINOPHILS % 1.6 % (0.0-6.0); LYMPHOCYTES % 6.0 % (18.0-39.1); MONOCYTES % 9.8 % (4.4-11.3); NEUTROPHILS % 81.8 % (38.7-80.0); RED CELL DISTRIBUTION WIDTH 13.5 % (11.7-14.4)
[2024-10-26 17:10] VITALS: TEMP 98.2
[2024-10-26] MEDS: SODIUM CHLORIDE 0.9% 1000ML 1,000 ML IV STA (17:19)
[2024-10-26] MEDS: ACETAMINOPHEN 325 MG TAB PO STA (17:20)
[2024-10-26] MEDS: Morphine 4mg INJECTION 4 MG/ML INJ IV PRN (17:20)
[2024-10-26 17:32] LABS: EST GLOMERULAR FILTRATION RATE 6.0 ML/MIN (>=60)
[2024-10-26 18:39] VITALS: PULSE 84; RESP 19
[2024-10-26 21:52] VITALS: BP 150/65; PULSE 85; RESP 22; TEMP 99.3; O2SAT 94
[2024-10-26] MEDS ORDERED: [UNRECOGNIZED DRUG - OTHER] (22:07)
[2024-10-26] MEDS ORDERED: LEVOCETIRIZINE D5 MG (22:09)
[2024-10-26] MEDS ORDERED: VITAMIN D350 MC1 PO (22:13)
[2024-10-26 22:41] VITALS: BP 150/65; PULSE 85; RESP 18; TEMP 99.3; O2SAT 94
[2024-10-27] VITALS (9 sets, daily range): BP systolic 135–164; BP diastolic 59–74; PULSE 55–87; RESP 18–22; TEMP 97.6–99.3; O2SAT 94–98
[2024-10-27] MEDS ORDERED: DOCUSATE SODIUM 100 MG CAP PO PRN
[2024-10-27] MEDS ORDERED: DIPHENHYDRAMINE HCL 25 MG CAP PO PRN
[2024-10-27] MEDS ORDERED: HYDRALAZINE HCL 20 MG/ML VIAL IV PRN
[2024-10-27] MEDS ORDERED: ACETAMINOPHEN 325 MG TAB PO PRN
[2024-10-27] MEDS ORDERED: SIMETHICONE 80 MG CHEW PO PRN
[2024-10-27] MEDS ORDERED: DEXTROSE 50% SYRINGE 50 ML IV PRN ×2
[2024-10-27] MEDS ORDERED: ALBUTEROL/IPRATROPIUM 3 ML NEB NEB PRN
[2024-10-27] MEDS ORDERED: LIDOCAINE 4% PATCH TP PRN
[2024-10-27] MEDS: Vancomycin IV 1 GM in SODIUM CHLORIDE 0.9% 250ML 250 ML IV ONE (02:07)
[2024-10-27 05:44] LABS: BASOPHILS % 0.8 % (0.0-1.0); EOSINOPHILS % 3.9 % (0.0-6.0); LYMPHOCYTES % 11.3 % (18.0-39.1); MONOCYTES % 14.4 % (4.4-11.3); NEUTROPHILS % 69.1 % (38.7-80.0); RED CELL DISTRIBUTION WIDTH 13.4 % (11.7-14.4)
[2024-10-27 06:20] LABS: EST GLOMERULAR FILTRATION RATE 5.0 ML/MIN (>=60); PHOSPHORUS 4.8 MG/DL (2.3-4.7)
[2024-10-27] MEDS: PANTOPRAZOLE SOD 40 MG TABEC PO SCH (07:30)
[2024-10-27] MEDS: ALLOPURINOL 100 MG TAB PO SCH (09:00)
[2024-10-27] MEDS: ARIPIPRAZOLE 2 MG TABLET PO SCH (09:00)
[2024-10-27] MEDS: HYDRALAZINE HCL 25 MG TAB PO SCH (09:00)
[2024-10-27] MEDS: CLOPIDOGREL BISULFATE 75 MG TAB PO SCH (09:00)
[2024-10-27] MEDS: AMLODIPINE BESYLATE 5 MG TAB PO SCH (09:00)
[2024-10-27] MEDS: CARVEDILOL 12.5 MG TAB PO SCH (09:00)
[2024-10-27] MEDS: INSULIN LISPRO 100 UNIT/1 ML 3ML VIAL SQ SCH (10:31)
[2024-10-27] MEDS: CALCIUM ACETATE 667 MG GELCAP PO SCH (12:00)
[2024-10-27] MEDS ORDERED: EPOETIN ALFA-EPBX 10,000 UNIT/ML VIAL IV ONE (17:00)
[2024-10-27] MEDS: ATORVASTATIN 20 MG TAB PO SCH (23:49)
[2024-10-27] MEDS: EPOETIN ALFA-EPBX 10,000 UNIT/ML VIAL SC ONE (23:49)
[2024-10-27] MEDS: HEPARIN SOD (PORCINE) 5,000 UNIT/ML VIAL SC SCH (23:58)
[2024-10-27] MEDS: INSULIN GLARGINE 100 UNITS/ML VIAL SQ SCH (23:58)
[2024-10-28] VITALS (9 sets, daily range): BP systolic 133–155; BP diastolic 43–64; PULSE 60–82; RESP 18–22; TEMP 97.7–98.8; O2SAT 95–100
[2024-10-28] MEDS: MELATONIN 5 MG TABLET PO PRN (00:03)
[2024-10-29] VITALS (10 sets, daily range): BP systolic 132–177; BP diastolic 40–75; PULSE 62–72; RESP 17–20; TEMP 97.2–98.4; O2SAT 92–100
[2024-10-29 05:14] LABS: HEPATITIS B CORE AB TOTAL Negative (Negative); HEPATITIS B SURFACE AB QUANT 426.0 mIU/mL (Immunity>10)
[2024-10-29 05:42] LABS: BASOPHILS % 0.7 % (0.0-1.0); EOSINOPHILS % 9.1 % (0.0-6.0); LYMPHOCYTES % 17.0 % (18.0-39.1); MONOCYTES % 18.9 % (4.4-11.3); NEUTROPHILS % 54.1 % (38.7-80.0); RED CELL DISTRIBUTION WIDTH 13.2 % (11.7-14.4)
[2024-10-29 06:16] LABS: EST GLOMERULAR FILTRATION RATE 6.0 ML/MIN (>=60); PHOSPHORUS 5.6 MG/DL (2.3-4.7)
[2024-10-29] MEDS: ONDANSETRON HCL INJ 2MG/ML 2ML 2 MG/ML VIAL IV PRN (11:49)
[2024-10-29] MEDS ORDERED: ALBUMIN 25% 12.5GM 0.25 GM/ML BTL IV PRN (19:00)
[2024-10-29] MEDS ORDERED: SODIUM CHLORIDE 0.9% 1000ML 2,000 ML IV PRN (19:00)
[2024-10-30] VITALS (12 sets, daily range): BP systolic 125–164; BP diastolic 41–75; PULSE 57–73; RESP 18–20; TEMP 97.7–98.5; O2SAT 96–100
[2024-10-30 05:34] LABS: BASOPHILS % 0.9 % (0.0-1.0); EOSINOPHILS % 10.5 % (0.0-6.0); LYMPHOCYTES % 14.8 % (18.0-39.1); MONOCYTES % 17.2 % (4.4-11.3); NEUTROPHILS % 56.4 % (38.7-80.0); RED CELL DISTRIBUTION WIDTH 13.2 % (11.7-14.4)
[2024-10-30 05:58] LABS: EST GLOMERULAR FILTRATION RATE 11.0 ML/MIN (>=60)
[2024-10-30] MEDS ORDERED: LIDOCAINE HCL 2% LOCAL 20 ML VIAL ONE (14:17)
[2024-10-30] MEDS ORDERED: IOPAMIDOL 370 MG/ML 100 ML INFUS..BTL INJ ONE (14:18)
[2024-10-30] MEDS ORDERED: SODIUM CHLORIDE 0.9% 1000ML 2,000 ML ONE (14:18)
[2024-10-30] MEDS ORDERED: HEPARIN SOD/SOD CHLORIDE 2,000 ML ONE (14:18)
[2024-10-30] MEDS ORDERED: FENTANYL CITRATE/PF 100MCG/2 ML INJ ONE (16:16)
[2024-10-30] MEDS ORDERED: MIDAZOLAM HCL 2 MG/2 ML VIAL ONE (16:16)
[2024-10-31] VITALS (11 sets, daily range): BP systolic 126–181; BP diastolic 34–84; PULSE 64–71; RESP 17–20; TEMP 97.9–98.8; O2SAT 96–100
[2024-10-31] MEDS ORDERED: PROPOFOL IV EMULSION 0 ML IV ONE (06:03)
[2024-10-31] MEDS ORDERED: ONDANSETRON HCL INJ 2MG/ML 2ML 2 MG/ML VIAL ONE (06:03)
[2024-10-31] MEDS ORDERED: DEXAMETHASONE SOD PHOS INJ 4 MG/ML SDV ONE (06:03)
[2024-10-31] MEDS ORDERED: LIDOCAINE HCL 2% LOCAL INJ 5 ML SDV VIAL INJ ONE (06:03)
[2024-10-31] MEDS ORDERED: FENTANYL CITRATE/PF 100MCG/2 ML INJ ONE (06:04)
[2024-10-31] MEDS ORDERED: MIDAZOLAM HCL 2 MG/2 ML VIAL ONE (06:04)
[2024-10-31] MEDS: HYDRALAZINE HCL 25 MG TAB PO SCH (14:32)
[2024-11-01] VITALS (7 sets, daily range): BP systolic 150–181; BP diastolic 43–78; PULSE 68–74; RESP 16–20; TEMP 97.3–98.3; O2SAT 95–100
[2024-11-01] MEDS: BENZONATATE 100 MG CAP PO PRN (02:25)
[2024-11-03] MEDS ORDERED: DOXYCYCLINE HY100 MG PO (14:21)
== END 2024-11-01 17:50 | disposition home or self-care (01) | DRG 853 ==
LOC: ER 16:25 → ERHOLD 18:51 → MED/SURG2 20:56
PROVIDERS: ADMIT Internal Medicine; ATTEND Internal Medicine
PROC: 5A1D70Z Performance of Urinary Filtration, Intermittent, Less than 6 Hours Per Day (ICD-10-PCS; 2024-10-27)
PROC: B41J1ZZ Fluoroscopy of Other Lower Arteries using Low Osmolar Contrast (ICD-10-PCS; 2024-10-30)
PROC: 0Y6V0Z0 Detachment at Right 4th Toe, Complete, Open Approach (ICD-10-PCS; principal; 2024-10-31 06:25)
DX: A41.9 Sepsis, unspecified organism (principal); N18.6 End stage renal disease; L03.115 Cellulitis of right lower limb; I13.11 Hypertensive heart and chronic kidney disease without heart failure, with stage 5 chronic kidney disease, or end stage renal disease; L97.411 Non-pressure chronic ulcer of right heel and midfoot limited to breakdown of skin; E87.1 Hypo-osmolality and hyponatremia; N25.81 Secondary hyperparathyroidism of renal origin; E11.52 Type 2 diabetes mellitus with diabetic peripheral angiopathy with gangrene; I96 Gangrene, not elsewhere classified; L97.422 Non-pressure chronic ulcer of left heel and midfoot with fat layer exposed; M86.171 Other acute osteomyelitis, right ankle and foot; E87.20 Acidosis, unspecified; R65.20 Severe sepsis without septic shock; E11.40 Type 2 diabetes mellitus with diabetic neuropathy, unspecified; I25.10 Atherosclerotic heart disease of native coronary artery without angina pectoris; E78.5 Hyperlipidemia, unspecified; E11.621 Type 2 diabetes mellitus with foot ulcer; D63.1 Anemia in chronic kidney disease; S91.204A Unspecified open wound of right lesser toe(s) with damage to nail, initial encounter; B95.2 Enterococcus as the cause of diseases classified elsewhere; Z79.4 Long term (current) use of insulin; I25.2 Old myocardial infarction; Z99.2 Dependence on renal dialysis; Z95.1 Presence of aortocoronary bypass graft; Z95.0 Presence of cardiac pacemaker; Z79.02 Long term (current) use of antithrombotics/antiplatelets; Z89.421 Acquired absence of other right toe(s); Z82.49 Family history of ischemic heart disease and other diseases of the circulatory system; Z89.422 Acquired absence of other left toe(s)
CPT/HCPCS: 36415; 80048; 80053; 82948; 83036; 83605; 83690; 83735; 83880; 84100; 84132; 85025; 86704; 86706; 87040; 87071; 87075; 87186; 87205; 88304; 88305; 88311; 90962; 93005; 93925; 93970; 94799; 99284; C1760; C1769; C1887; C1894; J1100; J1644; J1815; J2003; J2250; J2270; J2405; J2470; J2543; J3373; J7030; J7050; Q9967

== ENCOUNTER 2024-11-28 18:39 | Emergency (ER) | payer MEDICARE ==
[~2024-11-28] VITALS: Ht 172.7 cm; Wt 115.7 kg
[~2024-11-28 18:39] MED LIST changes: +DOXYCYCLINE HY100 MG PO; +LEVOCETIRIZINE D5 MG; +VITAMIN D350 MC1 PO; +[UNRECOGNIZED DRUG - OTHER]
[2024-11-28 19:22] LABS: BASOPHILS % 0.1 % (0.0-1.0); EOSINOPHILS % 1.6 % (0.0-6.0); LYMPHOCYTES % 5.7 % (18.0-39.1); MONOCYTES % 15.8 % (4.4-11.3); NEUTROPHILS % 76.5 % (38.7-80.0); RED CELL DISTRIBUTION WIDTH 14.9 % (11.7-14.4)
[2024-11-28 19:32] LABS: INR 1.2
[2024-11-28 19:42] LABS: EST GLOMERULAR FILTRATION RATE 11.0 ML/MIN (>=60)
[2024-11-28] MEDS: SODIUM CHLORIDE 0.9% 500ML 500 ML IV ONE (22:40)
[2024-11-28] MEDS: PROCHLORPERAZINE EDISYLATE 5 MG/ML VIAL IV ONE (22:40)
[2024-11-28] MEDS: DIPHENHYDRAMINE HCL INJ 50 MG/ML VIAL IV ONE (22:40)
[2024-11-28] MEDS: ACETAMINOPHEN 325 MG TAB PO ONE (22:41)
[2024-11-29 00:12] VITALS: PULSE 68; RESP 18; TEMP 98.3; O2SAT 98
== END 2024-11-29 00:17 | disposition home or self-care (01) ==
LOC: ER 19:15
DX: R51.9 Headache, unspecified (principal); I12.0 Hypertensive chronic kidney disease with stage 5 chronic kidney disease or end stage renal disease; E11.22 Type 2 diabetes mellitus with diabetic chronic kidney disease; E11.65 Type 2 diabetes mellitus with hyperglycemia; N18.6 End stage renal disease; Z99.2 Dependence on renal dialysis; I25.10 Atherosclerotic heart disease of native coronary artery without angina pectoris; E78.5 Hyperlipidemia, unspecified; K21.9 Gastro-esophageal reflux disease without esophagitis; I25.2 Old myocardial infarction; Z95.810 Presence of automatic (implantable) cardiac defibrillator; Z95.1 Presence of aortocoronary bypass graft
CPT/HCPCS: 36415; 70450; 71045; 80053; 82550; 83880; 84484; 85025; 85610; 85730; 93005; 99284; J0780; J1200; J7040